=== PATIENT | female | born 1985 | race American Indian/Alaskan Native ===

== ENCOUNTER 2017-07-04 06:57 | Emergency (ER) | payer SELFPAY ==
[2017-07-04 07:17] VITALS: BP 107/70
[2017-07-04] MEDS ORDERED: TORADOL IM ONE (07:52)
[2017-07-04] MEDS ORDERED: TYLENOL PO ONE (07:57)
[2017-07-04] MEDS ORDERED: NACL 0.9% 1000 ML 1,000 ML IV ONE (07:57)
[2017-07-04 08:21] LABS: Basophils % (Auto) 0.6 % (0.0-1.8); Eosinophils % (Auto) 2.8 % (0.0-4.3); Hemoglobin 9.4 gm/dl (10.1-14.3); Mean Corpuscular HGB Conc 31 % (30-34); Mean Corpuscular Volume 80 fl (79-97); Platelet Count 296 K/mm3 (140-440); Red Blood Count 3.76 M/mm3 (3.65-5.03); White Blood Count 4.2 K/mm3 (4.5-11.0)
[2017-07-04 08:26] LABS: Bacteria,Urine 1+ /HPF (Negative); Bilirubin,Urine SM (Negative); Blood,Urine LG (Negative); Ketones,Urine NEG (Negative); Leukocyte Esterase,Urine SM (Negative); Mucus,Urine 2+ /HPF; Nitrite,Urine NEG (Negative)
[2017-07-04 08:30] LABS: Mean Corpuscular Hemoglobin 25 pg (28-32)
[2017-07-04 08:33] LABS: Anion Gap 15 mmol/L; BUN/Creatinine Ratio 9; Blood Urea Nitrogen 6 mg/dL (7-17); Calcium 8.2 mg/dL (8.4-10.2); Carbon Dioxide 26 mmol/L (22-30); Chloride 104.2 mmol/L (98-107); Creatine Kinase 228 units/L (30-135); Glucose 73 mg/dL (65-100); Potassium 4.1 mmol/L (3.6-5.0); Sodium 141 mmol/L (137-145)
[2017-07-04] MEDS ORDERED: TORADOL IV ONE (08:33)
--- NOTE | 2017-07-04 08:33 | Emergency Department Report ---
ED Back Pain/Injury HPI - General Chief Complaint: Back Pain/Injury Stated Complaint: BACK PAIN Time Seen by Provider: 07/04/17 07:47 Source: patient Mode of arrival: Ambulatory Limitations: No Limitations - History of Present Illness Initial Comments: 31-year-old female past medical history none presents with complaint of 3-4 days of body aches. Patient is awake alert and oriented 3 not in acute distress. States that she started a new job and was exerting herself physically. 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 Denies fevers chills nausea vomiting headaches dizziness. Denies dysuria. LMP is now. States she has been taking Tylenol but still feels achy. Achiness worse and bilateral shoulders. States she has been moving around heavy objects. Symptoms improved with rest. Onset/Timin -: days(s) Place: home, work Severity: moderate Severity scale (0 -10): 6 Quality: aching Consistency: intermittent Improves With: none Worsens With: none - Related Data Previous Rx's Medication Instructions Recorded Last Taken Type Carisoprodol [Soma] 350 mg PO TID PRN #15 tablet 11/18/15 Unknown Rx Cyclobenzaprine [Flexeril] 10 mg PO TID PRN #6 tablet 07/04/17 Unknown Rx Naproxen 500 mg PO BID PRN #30 tablet 07/04/17 Unknown Rx Allergies Allergy/AdvReac Type Severity Reaction Status Date / Time tramadol Allergy Itching Verified 07/04/17 07:11 ED Review of Systems ROS: Stated complaint: BACK PAIN Other details as noted in HPI Constitutional: malaise. denies: chills, fever Eyes: denies: eye pain, eye discharge, vision change ENT: denies: ear pain, throat pain Respiratory: denies: cough, shortness of breath, wheezing Cardiovascular: denies: chest pain, palpitations Endocrine: no symptoms reported Gastrointestinal: denies: abdominal pain, nausea, diarrhea Genitourinary: denies: urgency, dysuria, discharge Musculoskeletal: denies: back pain, joint swelling, arthralgia Skin: denies: rash, lesions Neurological: denies: headache, weakness, paresthesias Psychiatric: denies: anxiety, depression Hematological/Lymphatic: denies: easy bleeding, easy bruising ED Past Medical Hx - Past Medical History Previous Medical History?: Yes Hx Asthma: Yes - Surgical History Past Surgical History?: Yes Additional Surgical History: X 3. TUBAL LIGATION - Social History Smoking Status: Current Every Day Smoker Substance Use Type: None - Medications Home Medications: Home Medications Medication Instructions Recorded Confirmed Last Taken Type Carisoprodol [Soma] 350 mg PO TID PRN #15 tablet 11/18/15 Unknown Rx Cyclobenzaprine [Flexeril] 10 mg PO TID PRN #6 tablet 07/04/17 Unknown Rx Naproxen 500 mg PO BID PRN #30 tablet 07/04/17 Unknown Rx ED Physical Exam - General Limitations: No Limitations General appearance: alert, in no apparent distress - Head Head exam: Present: atraumatic, normocephalic - Eye Eye exam: Present: normal appearance, PERRL, EOMI - ENT ENT exam: Present: mucous membranes moist - Neck Neck exam: Present: normal inspection - Respiratory Respiratory exam: Present: normal lung sounds bilaterally. Absent: respiratory distress - Cardiovascular Cardiovascular Exam: Present: regular rate, normal rhythm. Absent: systolic murmur, diastolic murmur, rubs, gallop - GI/Abdominal GI/Abdominal exam: Present: soft, normal bowel sounds - Extremities Exam Extremities exam: Present: normal inspection, full ROM (range of motion bilateral upper extremities shoulders elbows wrists lower extremities bilateral knees hips and feet intact on exam.) - Back Exam Back exam: Present: normal inspection - Neurological Exam Neurological exam: Present: alert, oriented X3, CN II-XII intact, normal gait - Expanded Neurological Exam Expanded Cranial nerves: EOM's Intact: Normal Sensory exam: Upper Extremity Light Touch: Normal, Lower Extremity Light Touch: Normal Motor strength exam: RUE: 5, LUE: 5, RLE: 5, LLE: 5 - Psychiatric Psychiatric exam: Present: normal affect, normal mood - Skin Skin exam: Present: warm, dry, intact, normal color. Absent: rash ED Course Vital Signs 07/04/17 07:11 Temperature 98.1 F Pulse Rate 74 Respiratory 18 Rate Blood Pressure 107/70 O2 Sat by Pulse 100 Oximetry ED Medical Decision Making - Lab Data Result diagrams: 07/04/17 08:01 07/04/17 08:01 - Medical Decision Making A/P: Muscle aches, musculoskeletal pain 1-significant improvement of discomfort with dose of Toradol and rehydration 2-CK minimally elevated, renal function normal. Urinalysis unremarkable 3-naproxen necessary, I advised the patient to remain well-hydrated. 4-all primary care doctor Critical care attestation.: If time is entered above; I have spent that time in minutes in the direct care of this critically ill patient, excluding procedure time. ED Disposition Clinical Impression: Generalized muscle ache Disposition: TO HOME OR SELFCARE Is pt being admited?: No Does the pt Need Aspirin: No Condition: Stable Instructions: Musculoskeletal Pain (ED), Dehydration (ED) Prescriptions: Cyclobenzaprine [Flexeril] 10 mg PO TID PRN #6 tablet PRN Reason: Muscle Spasm Naproxen 500 mg PO BID PRN #30 tablet PRN Reason: Pain Referrals: [facility] [Provider Group] - 3-5 Days [facility] [Outside] - 3-5 Days Forms: Work/School Release Form(ED) Time of Disposition: 09:49
== END 2017-07-04 10:29 | disposition home or self-care (01) ==
LOC: ED 06:57
DX: M54.9 Dorsalgia, unspecified (principal); F17.210 Nicotine dependence, cigarettes, uncomplicated; Z88.6 Allergy status to analgesic agent
CPT/HCPCS: 36415; 80048; 81001; 82550; 85025; 96361; 96374; 99283; J1885; J7030

== ENCOUNTER 2019-02-03 00:59 | Emergency (ER) | payer OTHER ==
--- NOTE | 2019-02-03 01:47 | XRay Report ---
PROCEDURE: XR SHOULDER 2+V LT TECHNIQUE: 3 views of the left shoulder were obtained. HISTORY: Fall with shoulder pain COMPARISONS: None FINDINGS: The glenohumeral and AC joints appear normal. The subacromial space appears normal. There is no evide nce of fracture or soft tissue injury. IMPRESSION: Within normal limits... This document is electronically signed by Giovanny Aguayo MD., Feb 03 2019 01:45:14 AM ET
[2019-02-03] MEDS ORDERED: IBUPROFEN ONE (04:43)
[2019-02-03] MEDS ORDERED: IBUPROFEN PO ONE (04:43)
[2019-02-03] MEDS ORDERED: NORCO 5/325 PO ONE (05:50)
[2019-02-03] MEDS ORDERED: NORCO 5/325 ONE (05:52)
[2019-02-03 06:45] VITALS: BP 109/67
[2019-02-03] MEDS ORDERED: TORADOL IM ONE (07:24)
--- NOTE | 2019-02-03 07:35 | Emergency Department Report ---
HPI - General Chief Complaint: Shoulder Injury Time Seen by Provider: 02/03/19 07:14 - HPI HPI: Miss Snell is a 33-year-old -[place] female who comes to the ER last night and this being seen 8 hours later, she is very angry about this. But she is complaining of left shoulder pain for 2 weeks. She states that she fell down the steps 2 weeks ago and sought no medical attention until now her left upper extremity is neurovascularly intact. She states that she had no associated injury or LOC at the time of the fall. She thought she was okay but [id number] medicines are not helping with the pain in the shoulder and she feels like there is something stuck in her shoulder movement makes the pain worse. Patient is on no home medications Past medical history asthma Past surgical history section 3 Last menstrual cycle patient has an IUD so she is irregular Patient smokes cigarettes and occasional alcohol: Denies drugs no significant family history Review of systems All systems reviewed and negative with the exception of the left arm pain. Physical exam Patient awake alert and oriented with no focal deficit S1 and S2 no murmur or bruit or rub Lungs clear to auscultation Abdomen soft and nontender No CVA tenderness Full range of motion of her left arm, patient reports stiffness. There is no tenderness over the before meals joint. There is no humerus tenderness. There is no point tenderness at the head of the humerus. She's got normal distal pulses and rapid capillary refill. Radial ulnar and medial nerves are intact. Medical decision making Exam per above X-ray reviewed by myself and radiology with no acute fracture, no before meals separation Given that the patient is complaining of pain of the arm without radiographic evidence of bony disruption: The patient has been placed in a sling will be sent home with end-stage and orthopedic referral. She was medicated in the emergency room for pain. She was given hydrocodone and Toradol IM. This provided some relief. A sling was placed on the left arm. ED Past Medical Hx - Past Medical History Previous Medical History?: Yes Hx Asthma: Yes - Surgical History Past Surgical History?: Yes Additional Surgical History: X 3. TUBAL LIGATION - Family History Family history: no significant - Social History Smoking Status: Current Every Day Smoker Substance Use Type: None - Medications Home Medications: Home Medications Medication Instructions Recorded Confirmed Last Taken Type Ibuprofen [Motrin] 800 mg PO Q8HR PRN #20 tablet 02/03/19 Unknown Rx predniSONE [Deltasone] 20 mg PO DAILY #5 tablet 02/03/19 Unknown Rx ED Review of Systems ROS: Stated complaint: LEFT SHOULDER PAIN Other details as noted in HPI Comment: All other systems reviewed and negative Musculoskeletal: as per HPI Physical Exam - Physical Exam Vital Signs: Vital Signs 02/03/19 02/03/19 01:09 06:44 Temperature 98.3 F 98.4 F Pulse Rate 90 70 Respiratory 18 16 Rate Blood Pressure 122/72 Blood Pressure 109/67 [Left] O2 Sat by Pulse 100 100 Oximetry Physical Exam: see see above ED Course Vital Signs 02/03/19 02/03/19 01:09 06:44 Temperature 98.3 F 98.4 F Pulse Rate 90 70 Respiratory 18 16 Rate Blood Pressure 122/72 Blood Pressure 109/67 [Left] O2 Sat by Pulse 100 100 Oximetry ED Medical Decision Making - Radiology Data Radiology results: report reviewed, image reviewed Critical care attestation.: If time is entered above; I have spent that time in minutes in the direct care of this critically ill patient, excluding procedure time. ED Disposition Clinical Impression: Shoulder contusion Disposition: DC-01 TO HOME OR SELFCARE Is pt being admited?: No Does the pt Need Aspirin: No Condition: Stable Instructions: Contusion in Adults (ED) Additional Instructions: sling during the day for comfort. Follow-up with orthopedics as instructed DIET TOLERATED MEDS ORDERED TODAY IN ER FOLLOW INSTRUCTIONS ON THE BOTTLE ACTIVITY TOLERATED RETURN TO THE ER FOR WORSENING SYMPTOMS NOT RELIEVED BY YOUR MEDICATIONS. Referrals: NELLY HELLER MD [Primary Care Provider] - 3-5 Days JASON SOLORIO MD [Staff Physician] - 3-5 Days Time of Disposition: 07:37
== END 2019-02-03 07:56 | disposition home or self-care (01) ==
LOC: ED 00:59
DX: S40.012A Contusion of left shoulder, initial encounter (principal); J45.909 Unspecified asthma, uncomplicated; F17.200 Nicotine dependence, unspecified, uncomplicated; W10.9XXA Fall (on) (from) unspecified stairs and steps, initial encounter; Y93.89 Activity, other specified; Y92.89 Other specified places as the place of occurrence of the external cause; Y99.8 Other external cause status
CPT/HCPCS: 73030; 96372; 99284; J1885

== ENCOUNTER 2019-03-06 20:14 | Inpatient (IN) | payer OTHER ==
--- NOTE | 2019-03-06 20:33 | Event Note ---
ED Screening Note Date of service: 03/06/19 Time: 20:31 ED Screening Note: 33 y/o female comes in for chest pain and feels like someone is sitting on her chest. Complains that her left leg is numb and her left arm numb. This initial assessment/diagnostic orders/clinical plan/treatment(s) is/are subject to change based on patients health status, clinical progression and re- assessment by fellow clinical providers in the ED. Further treatment and workup at subsequent clinical providers discretion. Patient/guardian urged not to elope from the ED as their condition may be serious if not clinically assessed and managed. Initial orders include:
[2019-03-06] MEDS ORDERED: MORPHINE IV ONE (21:01)
[2019-03-06] MEDS ORDERED: ZOFRAN IV ONE (21:01)
[2019-03-06] MEDS ORDERED: PEPCID IV ONE (21:01)
[2019-03-06] MEDS ORDERED: NACL 0.9% 1000 ML 1,000 ML IV ONE (21:01)
--- NOTE | 2019-03-06 21:02 | Emergency Department Report ---
ED General Adult HPI - General Chief complaint: Chest Pain Stated complaint: CHEST PAIN/SOB Time Seen by Provider: 03/06/19 20:54 Source: patient, RN notes reviewed Mode of arrival: Wheelchair Limitations: No Limitations - History of Present Illness Initial comments: This is a 33-year-old female. This patient is not known to this provider previously. The patient states that she is not . Her primary care doctor is Dr. Clotilde Tomlinson. She has a past medical history of asthma The patient presents to the emergency room today with a complaint of chest pain. The chest pain is central. The chest pain is present for 24 hours. It is constant. She states she feels like someone is sitting on her chest. She denies vomiting and diaphoresis. No recent aspirin consumption. No recent cocaine consumption. Chest pain increases with chewing and swallowing food. She denies DVT, pulmonary embolus risk factors. The patient endorses a secondary complaint of initially nontraumatic left-sided numbness. She reports the numbness started 2 hours prior to arrival. This numbness is in her left arm and left leg, and involves her left jaw. It is constant. It does not radiate anywhere. it does not have exacerbating or relieving factors. -: Gradual, hour(s), days(s) Location: chest, left, upper extremity, lower extremity Quality: aching Consistency: other Improves with: other Worsens with: other - Related Data Previous Rx's Medication Instructions Recorded Last Taken Type Ibuprofen [Motrin] 800 mg PO Q8HR PRN #20 tablet 02/03/19 Unknown Rx predniSONE [Deltasone] 20 mg PO DAILY #5 tablet 02/03/19 Unknown Rx Allergies Allergy/AdvReac Type Severity Reaction Status Date / Time tramadol Allergy Itching Verified 07/04/17 07:11 ED Review of Systems ROS: Stated complaint: CHEST PAIN/SOB Other details as noted in HPI Constitutional: denies: fever Eyes: denies: eye discharge ENT: denies: epistaxis Respiratory: denies: cough Cardiovascular: chest pain Gastrointestinal: denies: vomiting Genitourinary: denies: dysuria Musculoskeletal: denies: back pain Skin: denies: lesions Neurological: numbness, paresthesias Psychiatric: anxiety ED Past Medical Hx - Past Medical History Previous Medical History?: Yes Hx Asthma: Yes - Surgical History Past Surgical History?: Yes Additional Surgical History: X 3. TUBAL LIGATION - Social History Smoking Status: Current Every Day Smoker Substance Use Type: None - Medications Home Medications: Home Medications Medication Instructions Recorded Confirmed Last Taken Type Ibuprofen [Motrin] 800 mg PO Q8HR PRN #20 tablet 02/03/19 Unknown Rx predniSONE [Deltasone] 20 mg PO DAILY #5 tablet 02/03/19 Unknown Rx ED Physical Exam - General Limitations: No Limitations General appearance: alert, anxious, in distress - Head Head exam: Present: atraumatic, normocephalic - Eye Eye exam: Present: normal appearance, EOMI. Absent: nystagmus - ENT ENT exam: Present: normal exam, normal orophraynx, mucous membranes moist, normal external ear exam - Neck Neck exam: Present: normal inspection, full ROM. Absent: tenderness, meningismus - Respiratory Respiratory exam: Present: normal lung sounds bilaterally. Absent: respiratory distress - Cardiovascular Cardiovascular Exam: Present: normal rhythm, tachycardia, normal heart sounds. Absent: systolic murmur, diastolic murmur, rubs, gallop - GI/Abdominal GI/Abdominal exam: Present: soft, pulsatile mass. Absent: distended, tenderness, guarding, rebound, rigid - Extremities Exam Extremities exam: Present: normal inspection, full ROM, other (2+ pulses noted in the bilateral upper, lower extremities. Compartments soft. No long bony tenderness. The pelvis is stable.). Absent: pedal edema, joint swelling, calf tenderness - Back Exam Back exam: Present: normal inspection, full ROM. Absent: tenderness, CVA tenderness (R), CVA tenderness (L), paraspinal tenderness, vertebral tenderness - Neurological Exam Neurological exam: Present: alert, oriented X3, other (there is 5 out of 5 strength in the bilateral upper, lower extremities. There is decreased sensation to light touch left arm, left leg.). Absent: CN II-XII intact (there is decreased sensation to light touch in the left side V2, V3 distribution. Otherwise, extraocular movements are intact bilaterally. There is no facial junk, the tongue is midline, hearing is intact bilaterally, shoulder shrug is intact bilaterally, patient phonating in normal sentences.) - Psychiatric Psychiatric exam: Present: anxious - Skin Skin exam: Present: warm, dry, intact, normal color. Absent: rash ED Course Vital Signs 03/06/19 03/06/19 03/06/19 20:31 21:00 22:00 Temperature 97.9 F Pulse Rate 105 H 91 H Respiratory 20 16 15 Rate Blood Pressure 127/89 Blood Pressure 131/85 [Left] O2 Sat by Pulse 100 99 99 Oximetry 03/06/19 23:08 Temperature Pulse Rate 74 Respiratory 15 Rate Blood Pressure Blood Pressure 116/76 [Left] O2 Sat by Pulse 99 Oximetry - Reevaluation(s) Reevaluation #1: 03/06/19 22:11 Differential diagnosis, including but not limited to: GERD, gastritis, hiatal hernia, acute coronary syndrome, esophageal obstruction, esophageal spasm, aortic dissection, pericarditis, myocarditis, pericardial effusion, strokes, transient ischemic attack, radiculopathy, multiple sclerosis Assessment and plan: 33-year-old female with 2 complaints. In terms of the patient's chest pain, she endorses no pulmonary embolism or DVT risk factors, she is low risk by well's criteria, she is low risk by the heart score for major adverse cardiac event, and her tachycardia has resolved. Highly suspect GI pathology given her association with food. However, given that she subsequently endorses concomitant neurologic symptoms, an emergent CT angiogram of the chest abdomen pelvis is obtained to exclude aortic dissection. We clinically doubt aortic dissection based off of normal tension, equal pulses in the upper, lower extremities, and physical exam, however, a pulsatile abdominal mass was noted, and therefore, patient requires emergent imaging. In terms of her neurologic complaints, she has a low NIH score, and multiple competing diagnoses. In addition, she was seen in conjunction with stroke neurology, who elicited a history that the patient fell a few weeks ago, and may be interested in pursuing disability. In my opinion the patient does not appear to be floridly disabled, and there may be a secondary gain component. Nevertheless, an urgent neurologic work up is recommended by our consulting neurology specialist. The patient's symptoms will be treated, and we will reassess after her initial diagnostics have resulted. Of note, thus far, a noncontrast CT scan of the brain was interpreted as negative. X-ray of her chest appears to be unremarkable Reevaluation #2: 03/06/19 22:14 Because the patient required expedient workup to exclude aortic dissection, she is not able to receive an emergent CT angiogram of the head and neck. However, given the history and physical, large vessel occlusion is not suggested or supported by her physical exam findings or history. Therefore, an emergent CT angiogram of the neck does not need to be performed tonight. It may be performed routinely as an inpatient. Reevaluation #3: 03/06/19 22:58 CTA chest negative for acute disease. CT scan of brain negative for acute disease. Hospital physician, , accepts the patient to the medical service. Reevaluation #4: 03/07/19 00:15 CT angiogram abdomen and pelvis is negative for acute disease. ED Medical Decision Making - Lab Data Result diagrams: 03/06/19 20:42 03/06/19 20:42 Vital Signs 03/06/19 03/06/19 20:31 21:00 Temperature 97.9 F Pulse Rate 105 H 91 H Respiratory 20 16 Rate Blood Pressure 127/89 Blood Pressure 131/85 [Left] O2 Sat by Pulse 100 99 Oximetry Lab Results 03/06/19 03/06/19 03/06/19 Range/Units 20:42 20:42 21:09 WBC 5.8 (4.5-11.0) K/mm3 RBC 4.24 (3.65-5.03) M/mm3 Hgb 9.9 L (10.1-14.3) gm/dl Hct 31.1 (30.3-42.9) % MCV 74 L (79-97) fl MCH 23 L (28-32) pg MCHC 32 (30-34) % RDW 19.8 H (13.2-15.2) % Plt Count 332 (140-440) K/mm3 Lymph % (Auto) Pharmacology Teacher [place] % (Auto) Pharmacology Teacher Eos % (Auto) Pharmacology Teacher Baso % (Auto) Pharmacology Teacher Lymph # Pharmacology Teacher [place] # Pharmacology Teacher Eos # Pharmacology Teacher Baso # Pharmacology Teacher Seg Neutrophils % Pharmacology Teacher Seg Neutrophils # Pharmacology Teacher PT (12.2-14.9) Sec. INR (0.87-1.13) APTT (24.2-36.6) Sec. Thrombin Time (15.1-19.6) Sec. Sodium 137 (137-145) mmol/L Potassium 3.3 L (3.6-5.0) mmol/L Chloride 101.8 (98-107) mmol/L Carbon Dioxide 19 L (22-30) mmol/L Anion Gap 20 mmol/L BUN 6 L (7-17) mg/dL Creatinine 0.6 L (0.7-1.2) mg/dL Estimated GFR > 60 ml/min BUN/Creatinine Ratio 10 % Glucose 88 (65-100) mg/dL POC Glucose 90 (70-105) Calcium 9.2 (8.4-10.2) mg/dL Magnesium (1.7-2.3) mg/dL Total Bilirubin 0.20 (0.1-1.2) mg/dL AST 19 (5-40) units/L ALT 9 (7-56) units/L Alkaline Phosphatase 57 (35-129) units/L Total Creatine Kinase (30-135) units/L CK-MB (CK-2) (0.0-4.0) ng/mL CK-MB (CK-2) Rel Index (0-4) Troponin T < 0.010 (0.00-0.029) ng/mL Total Protein 7.9 (6.3-8.2) g/dL Albumin 4.1 (3.9-5) g/dL Albumin/Globulin Ratio 1.1 % TSH (0.270-4.200) mlU/mL 03/06/19 03/06/19 03/06/19 Range/Units 21:20 21:20 21:20 WBC (4.5-11.0) K/mm3 RBC (3.65-5.03) M/mm3 Hgb (10.1-14.3) gm/dl Hct (30.3-42.9) % MCV (79-97) fl MCH (28-32) pg MCHC (30-34) % RDW (13.2-15.2) % Plt Count (140-440) K/mm3 Lymph % (Auto) [place] % (Auto) Eos % (Auto) Baso % (Auto) Lymph # [place] # Eos # Baso # Seg Neutrophils % Seg Neutrophils # PT 13.0 (12.2-14.9) Sec. INR 1.01 (0.87-1.13) APTT 28.5 (24.2-36.6) Sec. Thrombin Time 16.5 (15.1-19.6) Sec. Sodium (137-145) mmol/L Potassium (3.6-5.0) mmol/L Chloride (98-107) mmol/L Carbon Dioxide (22-30) mmol/L Anion Gap mmol/L BUN (7-17) mg/dL Creatinine (0.7-1.2) mg/dL Estimated GFR ml/min BUN/Creatinine Ratio % Glucose (65-100) mg/dL POC Glucose (70-105) Calcium (8.4-10.2) mg/dL Magnesium 1.80 (1.7-2.3) mg/dL Total Bilirubin (0.1-1.2) mg/dL AST (5-40) units/L ALT (7-56) units/L Alkaline Phosphatase (35-129) units/L Total Creatine Kinase 113 115 (30-135) units/L CK-MB (CK-2) 1.1 (0.0-4.0) ng/mL CK-MB (CK-2) Rel Index 0.9 (0-4) Troponin T < 0.010 (0.00-0.029) ng/mL Total Protein (6.3-8.2) g/dL Albumin (3.9-5) g/dL Albumin/Globulin Ratio % TSH (0.270-4.200) mlU/mL 03/06/19 Range/Units 21:20 WBC (4.5-11.0) K/mm3 RBC (3.65-5.03) M/mm3 Hgb (10.1-14.3) gm/dl Hct (30.3-42.9) % MCV (79-97) fl MCH (28-32) pg MCHC (30-34) % RDW (13.2-15.2) % Plt Count (140-440) K/mm3 Lymph % (Auto) [place] % (Auto) Eos % (Auto) Baso % (Auto) Lymph # [place] # Eos # Baso # Seg Neutrophils % Seg Neutrophils # PT (12.2-14.9) Sec. INR (0.87-1.13) APTT (24.2-36.6) Sec. Thrombin Time (15.1-19.6) Sec. Sodium (137-145) mmol/L Potassium (3.6-5.0) mmol/L Chloride (98-107) mmol/L Carbon Dioxide (22-30) mmol/L Anion Gap mmol/L BUN (7-17) mg/dL Creatinine (0.7-1.2) mg/dL Estimated GFR ml/min BUN/Creatinine Ratio % Glucose (65-100) mg/dL POC Glucose (70-105) Calcium (8.4-10.2) mg/dL Magnesium (1.7-2.3) mg/dL Total Bilirubin (0.1-1.2) mg/dL AST (5-40) units/L ALT (7-56) units/L Alkaline Phosphatase (35-129) units/L Total Creatine Kinase (30-135) units/L CK-MB (CK-2) (0.0-4.0) ng/mL CK-MB (CK-2) Rel Index (0-4) Troponin T (0.00-0.029) ng/mL Total Protein (6.3-8.2) g/dL Albumin (3.9-5) g/dL Albumin/Globulin Ratio % TSH 1.790 (0.270-4.200) mlU/mL - EKG Data -: EKG Interpreted by Me EKG shows normal: sinus rhythm Rate: normal - EKG Data 03/06/19 22:14 EKG #1 shows a normal sinus rhythm, 93 bpm, normal axis, motion artifact, QTC 447 ms, I left ventricular voltage, this is an abnormal EKG, this EKG is not consistent with ST elevation myocardial infarction. EKG #2 appears to be grossly unchanged from prior. There is significant motion artifact both EEGs, as the patient is trembling, and is not able to relax. - Radiology Data Radiology results: report reviewed, image reviewed X-ray of the chest appears to be unremarkable. Noncontrast CT scan of the brain is negative. Critical care attestation.: If time is entered above; I have spent that time in minutes in the direct care of this critically ill patient, excluding procedure time. ED Disposition Clinical Impression: Acute chest pain, Numbness on left side, Chest pain Disposition: OP ADMIT IP TO THIS HOSP Is pt being admited?: Yes Does the pt Need Aspirin: Yes Condition: Good - Assessment Assessment Interval: Baseline - Level of Consciousness 1a. Level of Consciousness: alert/keenly responsive - LOC Questions 1b. LOC Questions: answers both correctly - LOC Command 1c. LOC Commands: performs tasks correctly - Best Gaze 2. Best Gaze: normal - Visual 3. Visual: no visual loss - Facial Palsy 4. Facial Palsy: normal symmetrical movement - Motor Arm 5a. Motor Arm Left: no drift 5b. Motor Arm Right: no drift - Motor Leg 6a. Motor Leg Left: no drift 6b. Motor Leg Right: no drift - Limb Ataxia 7. Limb Ataxia: absent - Sensory 8. Sensory: mild/moderate sensory loss - Best Language 9. Best Language: no aphasia - Dysarthria 10. Dysarthria: normal - Extinction and Inattention 11. Extinction/Inattention: no abnormality - Scoring Total Score: 1 Stroke Severity: Minor Stroke
[2019-03-06 21:04] LABS: Hematocrit 31.1 % (30.3-42.9); Hemoglobin 9.9 gm/dl (10.1-14.3); Mean Corpuscular HGB Conc 32 % (30-34); Mean Corpuscular Volume 74 fl (79-97); Platelet Count 332 K/mm3 (140-440); Red Blood Count 4.24 M/mm3 (3.65-5.03); Red Cell Distribution Width 19.8 % (13.2-15.2)
[2019-03-06 21:17] LABS: Alanine Aminotransferase 9 units/L (7-56); Albumin 4.1 g/dL (3.9-5); BUN/Creatinine Ratio 10; Blood Urea Nitrogen 6 mg/dL (7-17); Calcium 9.2 mg/dL (8.4-10.2); Hemolysis Index 2
--- NOTE | 2019-03-06 21:33 | Cat Scan Report ---
PROCEDURE: CT HEAD/BRAIN WO CON TECHNIQUE: Computerized tomography of the head was performed without contrast material. CT DOSE LENGTH PRODUCT: 920.5 mGycm HISTORY: Stroke symptoms COMPARISONS: None . FINDINGS: Skull and scalp: Normal . Paranasal sinuses: Normal . Ventricles and subarachnoid spaces: Normal . Cerebrum: No evidence of hemorrhage, acute infarction or mass . Cerebellum and brainstem: No evidence of hemorrhage, acute infarction or mass . Vasculature: Normal . Other: None . IMPRESSION: No evidence of hemorrhage, acute infarction or mass . This document is electronically signed by Bonita Grullon MD., March 06 2019 09:31:32 PM ET
[2019-03-06 21:50] LABS: INR 1.01 (0.87-1.13)
[2019-03-06 21:51] LABS: Partial Thromboplastin Time 28.5 Sec. (24.2-36.6); Thrombin Time 16.5 Sec. (15.1-19.6)
[2019-03-06 21:57] LABS: Creatine Kinase MB 1.1 ng/mL (0.0-4.0)
[2019-03-06] MEDS ORDERED: K-DUR PO ONE (22:16)
--- NOTE | 2019-03-06 22:35 | XRay Report ---
PROCEDURE: XR CHEST 1V AP TECHNIQUE: Chest radiograph single view. HISTORY: chest pain. COMPARISONS: None . FINDINGS: Heart: Normal. Mediastinum/Vessels: Normal. Lungs/Pleural space: Normal. Bony thorax: No acute osseous abnormality. Life support devices: None. IMPRESSION: No acute cardiopulmonary abnormality. This document is electronically signed by Bonita Grullon MD., March 06 2019 10:32:51 PM ET
--- NOTE | 2019-03-06 22:51 | Cat Scan Report ---
PROCEDURE: CT ANGIO CHEST TECHNIQUE: Computerized tomographic angiography of the chest was performed during the IV injection o f iodinated nonionic contrast including image processing. The image data was postprocessed using 2-d imensional multiplanar reformatted (MPR) and 3-dimensional (MIP and/or volume rendered) techniques. A utomated exposure control, adjustment of mA and/or kV according to patient size, or iterative reconst ruction dose optimization techniques were utilized. HISTORY: cp, cva symptoms, aortic protocol COMPARISONS: None . FINDINGS: Pulmonary out flow tract, right and left main pulmonary arteries and the approximal branches: Clear, no filling defects seen to suggest pulmonary embolus. Pericardium: No evidence of pericardial effusion. Thoracic aorta: No evidence of aneurysmal dilatation or dissection. The origin of the great vessels appear widely patent. Visualized portions of the vertebral arteries and common carotid arteries appea r widely patent. No significant stenosis, dissection or occlusion identified. Coronary arteries: Unremarkable. Mediastinum and hilar regions: Non specific subcentimeter lymph nodes are visualized. No pathologica lly enlarged lymph nodes or masses are identified. Lung Jung: Minimal peripheral emphysematous changes visualized near the apex of both lungs. The caio gs otherwise are clear. No infiltrates masses or effusions are identified. No evidence of pneumothora x. Upper abdomen: No acute or focal abnormality is seen. Other: No acute bone abnormalities are identified. IMPRESSION: No acute abnormalities identified. Aortic arch and origin of the great vessels appear widely patent. This document is electronically signed by Greg Velasquez MD., March 06 2019 10:49:31 PM ET
[2019-03-06] MEDS ORDERED: BABY ASPIRIN PO ONE (23:03)
--- NOTE | 2019-03-06 23:13 | Emergency Department Report ---
ED Neuro Deficit HPI - General Chief Complaint: Chest Pain Stated Complaint: CHEST PAIN/SOB Time Seen by Provider: 03/06/19 20:54 Source: patient, RN/MD, RN notes reviewed Mode of arrival: Wheelchair Limitations: No Limitations - History of Present Illness Initial Comments: [facility] TeleStroke Metrics: LKW: 1800 Door Time: 2013 [facility] Contacted: 2102 [facility] at Bedside: 2108 NIHSS: 2111 Decision on Alteplase: Not to give due to the patient's acute chest pain and low NIH stroke scale score less than 5. Patient was in agreement to be conservative and not to receive IV alteplase. Interventional Candidate: Not a candidate as her symptoms are not consistent with a large vessel proximal occlusion. Chief Complaint: Severe chest pain, neck pain, and left-sided numbness and weakness. HPI: Asked to see this patient in telemedicine consultation. Consultation was performed with assistance of ancillary / medical staff at bedside. Verbal consent to perform the examination with telemedicine was obtained. Patient agreed to proceed with the consultation. 33-year-old right-handed Afro-[place]og[place]ese female who comes to the emergency room for evaluation of worsening chest pain and left-sided numbness and weakness. Patient states that about 2 months ago, she fell down some flights of stairs. She developed neck pain, and has had this on and off over the last 2 months. Then apparently last night, she developed significant chest pain. Then sometime around 6 PM, she developed worsening chest pain and noted left arm and leg numbness. While in the ER, she also was noted to have mild left-sided weakness in addition to her left-sided numbness. Initial clinical concern was for an aortic dissection given her severe chest pain and focal neurological symptoms. Head CT eventually came back negative. CTA of the chest was also grossly negative for overt aortic dissection. I reviewed with the patient about the availability of IV alteplase. I reviewed with her about some of the potential side effects of IV alteplase to include an approximate 6% risk of symptomatic intracranial hemorrhage, internal bleeding, and/or angioedema. Patient at this point had opted for a more conservative management, and had deferred IV alteplase administration. PMH: Asthma SOC: Positive for tobacco abuse. Negative for alcohol abuse or illicit drug use. Patient does not take any control pills. She lives with family. FMH: Positive for stroke. ROS: 13 point review of systems were reviewed with the patient, and are all negative with the exception of the aforementioned in the history of present illness. VS: Temperature is 97.9 F, pulse 105, respiration 20, blood pressure 127/89, oxygen saturation 100% Exam: Patient is in no apparent distress. Patient appears as stated age. No obvious acute respiratory or cardiac distress. Patient is well groomed and well-nourished. 1a- LOC: Keenly responsive - 0 1b- LOC questions: Answers both questions correctly - 0 1c- LOC commands- Performs both tasks correctly- 0 2- Gaze: Normal; no gaze paresis or gaze deviation - 0 3- Visual Jung: normal, no Visual field deficit - 0 4- Facial movements: no facial palsy - 0 5- Upper limb motor left arm drift - 1 6- Lower limb motor left leg drift - 1 7- Limb Coordination: absent ataxia - 0 8- Sensory: left sensory loss - 1 9- Language - No aphasia - 0 10- Speech - No dysarthria -0 11- Neglect / Extinction - none found - 0 NIHSS score: 3 Diagnostic Data: Blood glucose 90, WBC 5.8, hemoglobin 9.9, platelets 332 CT of the head showed no acute intracranial process CTA of the chest was negative for aortic dissection. Medical Data Reviewed: 1.Data?reviewed include clinical labs, radiology, and medical tests; 2.Tests?results discussed w/performing or interpreting physician; 3.Obtaining/reviewing old medical records; 4.Obtaining?case history from another source; 5.Independent?review of image, tracing, or specimen. Medical Decision Making: - Extensive number of diagnosis or management options are considered below. - Extensive amount of complex data reviewed. - High risk of complication and/or morbidity or mortality are associated with differential diagnostic considerations below. - There may be?uncertain?outcome and increased probability of prolonged functional impairment or high probability of severe prolonged functional impairment associated with some of these differential diagnosis. Differential Diagnosis for Stroke: 1.?Cardioembolic?stroke 2. Small vessel disease/lacune 3. Thromboembolic, [id number] mechanism 4.?Hypercoagulable?state-related infarct 5. Transient ischemic attack 6. Thrombotic mechanism, large artery disease Assessment: 1. Chest pain 2. Left-sided numbness and weakness 3. Tobacco abuse 4. History of asthma 5. Neck Pain Recommendations: Patient can be admitted to the hospital for further evaluation of her symptoms. Chest pain work-up per primary team. Reasonable to start the patient on a baby aspirin for now. Can check MRI of the brain with and without contrast to rule out any acute intracranial process. Can check MRA of the head and neck to evaluate her intracranial and extracranial blood vessels given her history of fall 2 months ago and ongoing neck pain issues. Can also check MRI of the cervical spine with and without contrast given her left-sided symptoms and ongoing neck discomfort. Check echocardiogram to gauge her cardiac function. Maintain the patient on telemetry to look for any paroxysmal cardiac arrhythmias. Check lipid panel, hemoglobin A1c, and urine drug screen. Consult PT, OT, and ST. Consult local neurology team to assist with evaluation and management. Continue supportive care. Plan of care was discussed with the patient. Thank you for allowing [facility] to participate in the care of your patient. Please call me, Dr. Hammond, with any questions at [phone]. Case discussed with the ER staff and Dr. Hazel. Critical Care notation: I was called to see this critical patient emergently. I personally evaluated this critical patient for acute stroke evaluation, and determining their eligibility for IV Alteplase and interventional therapies. I have spent approximately 7 minutes with the patient, including time at bedside, time discussing the case with other physicians, reviewing plan of care, and time independently reviewing the records and scans. -: Sudden - Related Data Home Medications: Previous Rx's Medication Instructions Recorded Last Taken Type Ibuprofen [Motrin] 800 mg PO Q8HR PRN #20 tablet 02/03/19 Unknown Rx predniSONE [Deltasone] 20 mg PO DAILY #5 tablet 02/03/19 Unknown Rx Allergies/Adverse Reactions: Allergies Allergy/AdvReac Type Severity Reaction Status Date / Time tramadol Allergy Itching Verified 07/04/17 07:11 ED Review of Systems ROS: Stated complaint: CHEST PAIN/SOB Other details as noted in HPI Constitutional: denies: fever Eyes: denies: eye discharge ENT: denies: epistaxis Respiratory: denies: cough Cardiovascular: chest pain Gastrointestinal: denies: vomiting Genitourinary: denies: dysuria Musculoskeletal: denies: back pain Skin: denies: lesions Neurological: numbness, paresthesias Psychiatric: anxiety ED Past Medical Hx - Past Medical History Previous Medical History?: Yes Hx Asthma: Yes - Surgical History Past Surgical History?: Yes Additional Surgical History: X 3. TUBAL LIGATION - Social History Smoking Status: Current Every Day Smoker Substance Use Type: None - Medications Home Medications: Home Medications Medication Instructions Recorded Confirmed Last Taken Type Ibuprofen [Motrin] 800 mg PO Q8HR PRN #20 tablet 02/03/19 Unknown Rx predniSONE [Deltasone] 20 mg PO DAILY #5 tablet 02/03/19 Unknown Rx ED Neuro Physical Exam - General Limitations: No Limitations General appearance: alert, anxious, in distress Suspected Stroke: Yes - NIHSS Assessment Interval: Baseline 1a. Level of Consciousness: alert/keenly responsive 1b. LOC Questions: answers both correctly 1c. LOC Commands: performs tasks correctly 2. Best Gaze: normal 3. Visual: no visual loss 4. Facial Palsy: normal symmetrical movement 5b. Motor Arm Right: no drift 5a. Motor Arm Left: drift 6a. Motor Leg Left: drift 6b. Motor Leg Right: no drift 7. Limb Ataxia: absent 8. Sensory: mild/moderate sensory loss 9. Best Language: no aphasia 10. Dysarthria: normal 11. Extinction/Inattention: no abnormality Total Score: 3 Stroke Severity: Minor Stroke ED Course Vital Signs 03/06/19 03/06/19 03/06/19 20:31 21:00 22:00 Temperature 97.9 F Pulse Rate 105 H 91 H Respiratory 20 16 15 Rate Blood Pressure 127/89 Blood Pressure 131/85 [Left] O2 Sat by Pulse 100 99 99 Oximetry 03/06/19 23:08 Temperature Pulse Rate 74 Respiratory 15 Rate Blood Pressure Blood Pressure 116/76 [Left] O2 Sat by Pulse 99 Oximetry - Lab Data Result diagrams: 03/06/19 20:42 03/06/19 20:42 Lab Results 03/06/19 03/06/19 03/06/19 Range/Units 20:42 20:42 21:09 WBC 5.8 (4.5-11.0) K/mm3 RBC 4.24 (3.65-5.03) M/mm3 Hgb 9.9 L (10.1-14.3) gm/dl Hct 31.1 (30.3-42.9) % MCV 74 L (79-97) fl MCH 23 L (28-32) pg MCHC 32 (30-34) % RDW 19.8 H (13.2-15.2) % Plt Count 332 (140-440) K/mm3 Lymph % (Auto) Zoology Teacher Yancey % (Auto) Zoology Teacher Eos % (Auto) Zoology Teacher Baso % (Auto) Zoology Teacher Lymph # Zoology Teacher Yancey # Zoology Teacher Eos # Zoology Teacher Baso # Zoology Teacher Seg Neutrophils % Zoology Teacher Seg Neutrophils # Zoology Teacher PT (12.2-14.9) Sec. INR (0.87-1.13) APTT (24.2-36.6) Sec. Thrombin Time (15.1-19.6) Sec. Sodium 137 (137-145) mmol/L Potassium 3.3 L (3.6-5.0) mmol/L Chloride 101.8 (98-107) mmol/L Carbon Dioxide 19 L (22-30) mmol/L Anion Gap 20 mmol/L BUN 6 L (7-17) mg/dL Creatinine 0.6 L (0.7-1.2) mg/dL Estimated GFR > 60 ml/min BUN/Creatinine Ratio 10 % Glucose 88 (65-100) mg/dL POC Glucose 90 (70-105) Calcium 9.2 (8.4-10.2) mg/dL Magnesium (1.7-2.3) mg/dL Total Bilirubin 0.20 (0.1-1.2) mg/dL AST 19 (5-40) units/L ALT 9 (7-56) units/L Alkaline Phosphatase 57 (35-129) units/L Total Creatine Kinase (30-135) units/L CK-MB (CK-2) (0.0-4.0) ng/mL CK-MB (CK-2) Rel Index (0-4) Troponin T < 0.010 (0.00-0.029) ng/mL Total Protein 7.9 (6.3-8.2) g/dL Albumin 4.1 (3.9-5) g/dL Albumin/Globulin Ratio 1.1 % TSH (0.270-4.200) mlU/mL 03/06/19 03/06/19 03/06/19 Range/Units 21:20 21:20 21:20 WBC (4.5-11.0) K/mm3 RBC (3.65-5.03) M/mm3 Hgb (10.1-14.3) gm/dl Hct (30.3-42.9) % MCV (79-97) fl MCH (28-32) pg MCHC (30-34) % RDW (13.2-15.2) % Plt Count (140-440) K/mm3 Lymph % (Auto) Yancey % (Auto) Eos % (Auto) Baso % (Auto) Lymph # Yancey # Eos # Baso # Seg Neutrophils % Seg Neutrophils # PT 13.0 (12.2-14.9) Sec. INR 1.01 (0.87-1.13) APTT 28.5 (24.2-36.6) Sec. Thrombin Time 16.5 (15.1-19.6) Sec. Sodium (137-145) mmol/L Potassium (3.6-5.0) mmol/L Chloride (98-107) mmol/L Carbon Dioxide (22-30) mmol/L Anion Gap mmol/L BUN (7-17) mg/dL Creatinine (0.7-1.2) mg/dL Estimated GFR ml/min BUN/Creatinine Ratio % Glucose (65-100) mg/dL POC Glucose (70-105) Calcium (8.4-10.2) mg/dL Magnesium 1.80 (1.7-2.3) mg/dL Total Bilirubin (0.1-1.2) mg/dL AST (5-40) units/L ALT (7-56) units/L Alkaline Phosphatase (35-129) units/L Total Creatine Kinase 113 115 (30-135) units/L CK-MB (CK-2) 1.1 (0.0-4.0) ng/mL CK-MB (CK-2) Rel Index 0.9 (0-4) Troponin T < 0.010 (0.00-0.029) ng/mL Total Protein (6.3-8.2) g/dL Albumin (3.9-5) g/dL Albumin/Globulin Ratio % TSH (0.270-4.200) mlU/mL 03/06/19 Range/Units 21:20 WBC (4.5-11.0) K/mm3 RBC (3.65-5.03) M/mm3 Hgb (10.1-14.3) gm/dl Hct (30.3-42.9) % MCV (79-97) fl MCH (28-32) pg MCHC (30-34) % RDW (13.2-15.2) % Plt Count (140-440) K/mm3 Lymph % (Auto) Yancey % (Auto) Eos % (Auto) Baso % (Auto) Lymph # Yancey # Eos # Baso # Seg Neutrophils % Seg Neutrophils # PT (12.2-14.9) Sec. INR (0.87-1.13) APTT (24.2-36.6) Sec. Thrombin Time (15.1-19.6) Sec. Sodium (137-145) mmol/L Potassium (3.6-5.0) mmol/L Chloride (98-107) mmol/L Carbon Dioxide (22-30) mmol/L Anion Gap mmol/L BUN (7-17) mg/dL Creatinine (0.7-1.2) mg/dL Estimated GFR ml/min BUN/Creatinine Ratio % Glucose (65-100) mg/dL POC Glucose (70-105) Calcium (8.4-10.2) mg/dL Magnesium (1.7-2.3) mg/dL Total Bilirubin (0.1-1.2) mg/dL AST (5-40) units/L ALT (7-56) units/L Alkaline Phosphatase (35-129) units/L Total Creatine Kinase (30-135) units/L CK-MB (CK-2) (0.0-4.0) ng/mL CK-MB (CK-2) Rel Index (0-4) Troponin T (0.00-0.029) ng/mL Total Protein (6.3-8.2) g/dL Albumin (3.9-5) g/dL Albumin/Globulin Ratio % TSH 1.790 (0.270-4.200) mlU/mL Critical care attestation.: If time is entered above; I have spent that time in minutes in the direct care of this critically ill patient, excluding procedure time. ED Disposition Clinical Impression: Chest pain, Acute chest pain, Numbness on left side Disposition: OP ADMIT IP TO THIS HOSP Is pt being admited?: Yes Does the pt Need Aspirin: Yes Condition: Good Instructions: Chest Pain (ED) Referrals: NELLY HELLER MD [Primary Care Provider] - 3-5 Days
--- NOTE | 2019-03-06 23:37 | Cat Scan Report ---
PROCEDURE: CT ANGIO ABDOMEN PELVIS TECHNIQUE: Computerized axial tomographic angiography of the abdomen and pelvis was performed during the IV injection of iodinated nonionic contrast. The image data was postprocessed using 2-dimensiona l multiplanar reformatted (MPR) and 3-dimensional (MIP and/or volume rendered) techniques. HISTORY: cp, cva symptoms, aortic protocol pulsatile abd ma COMPARISONS: None . FINDINGS: Lower Lung thibodeaux: No focal abnormalities seen. Upper Abdomen: The liver, gallbladder, adrenal glands, the pancreas and spleen are unremarkable. The re is nonspecific visualization of the pancreatic duct. Kidneys, Ureters and Urinary bladder: No abnormalities are seen. Retroperitoneum: The abdominal aorta appears normal. There is no aneurysm or dissection. No evidence of occlusion or stenosis. Single renal artery visualized on the left, 2 renal arteries are visualized on the right which appear widely patent. The celiac trunk and SMA are widely patent. Inferior mesent amari artery also appears widely patent. Iliac arteries are widely patent. Nonspecific subcentimeter lymph nodes are seen in the retroperitoneum. No pathologically enlarged ly mph nodes are identified. Bowel: No focal abnormalities are identified. No evidence of bowel obstruction ascites or free intra peritoneal gas. Reproductive organs: Uterus and adnexa show no focal abnormality. Tubal ligation clips are visualize d bilaterally. Other: No acute bone abnormalities are identified. IMPRESSION: No focal abnormalities of the abdomen or branch vessels visualized. There is no evidence of occlusion , significant stenosis or dissection. No aneurysm is visualized. Tubal ligation clips visualized bilaterally. This document is electronically signed by Greg Velasquez MD., March 06 2019 11:34:59 PM [facility]
[2019-03-06] MEDS ORDERED: BABY ASPIRIN ONE (23:47)
[2019-03-07] MEDS ORDERED: NITROSTAT SL PRN (00:09)
[2019-03-07] MEDS ORDERED: ZOFRAN IV PRN (00:11)
[2019-03-07] MEDS ORDERED: BENADRYL IV PRN (00:15)
[2019-03-07] MEDS: MORPHINE IV PRN ×4 (00:48→21:09)
[2019-03-07] MEDS: NITRO-BID 2% TP SCH ×5 (00:49→17:31)
[2019-03-07] MEDS ORDERED: SOLU-Medrol IV ONE (01:00)
[2019-03-07] MEDS ORDERED: SOLU-Medrol IV SCH (06:00)
[2019-03-07 06:13] LABS: Amphetamine Screen,Urine PRESUMPTIVE NEGATIVE; Benzodiazepines Screen,Urine PRESUMPTIVE NEGATIVE; Cocaine Screen,Urine PRESUMPTIVE NEGATIVE; Methadone Screen,Urine PRESUMPTIVE NEGATIVE; Opiate Screen,Urine PRESUMPTIVE NEGATIVE
[2019-03-07 06:28] LABS: Cannabinoid Screen,Urine PRESUMPTIVE POSITIVE
--- NOTE | 2019-03-07 06:46 | History and Physical Report ---
CHIEF COMPLAINT: Chest pain. Other complaint includes numbness of the left side of the face, left upper limb and left lower limb. HISTORY OF PRESENTING ILLNESS: The patient is a 33-year-old female who presented to the Emergency Room complaining about pressure-like chest pain located in the precordial area. Chest pain has been going on for about 24 hours and remained constant. The patient described the pain as if someone is sitting on her chest. There was no history of nausea and vomiting, no history of diaphoresis, but there is history of associated shortness of breath. The patient also complained of numbness on the left side of the face, left upper limb and left lower limb that started sometime yesterday and said that the numbness started about 2 hours prior to presentation. There was no history of speech impairment and no history of dizziness; however, the patient said there is associated weakness on the left upper and lower limbs with the numbness at the same time. The patient denied history of fever or chills and presented for evaluation. PAST MEDICAL HISTORY: Pertinent for asthma. PAST SURGICAL HISTORY: Pertinent for and tubal ligation. FAMILY HISTORY: Reviewed and noncontributory. SOCIAL HISTORY: The patient smokes cigarettes, does not drink alcohol and does not use illicit drug. MEDICATIONS: The patient is on prednisone 20 mg by mouth daily, ibuprofen 800 mg by mouth every 8 hours as needed for pain. ALLERGIES: The patient is allergic to TRAMADOL. REVIEW OF SYSTEMS: CONSTITUTIONAL: There is no fever, no chills, no diaphoresis. HEENT: There is no headache or sore throat. CARDIOVASCULAR SYSTEM: Chest pain is present. No orthopnea. RESPIRATORY SYSTEM: Shortness of breath is present. No cough. GASTROINTESTINAL SYSTEM: There is no nausea, no vomiting, no abdominal pain, diarrhea or constipation. NEUROLOGICAL SYSTEM: Numbness on the left side of the face, left upper and lower limbs noted. Weakness on the left upper and lower limbs noted. No change in mental status. No dizziness. MUSCULOSKELETAL SYSTEM: There is no joint pain or swelling. DERMATOLOGICAL SYSTEM: There is history of skin rash with itching in the neck area. GENITOURINARY SYSTEM: There is no dysuria, hematuria or flank pain. Rest of system review is normal. PHYSICAL EXAMINATION: GENERAL: At the time of exam, the patient was found to be alert, oriented x 3 and in mild distress due to chest pain. VITAL SIGNS: Show normal temperature with pulse of 77, respiration of 20, blood pressure of 106/66 with normal O2 sat on room air. HEENT: Shows pupils are equal, round and reactive to light and accommodating. Extraocular muscles are intact. NECK: Supple with no JVD or carotid bruit. CARDIOVASCULAR SYSTEM: Showed first and second heart sounds with no gallops or murmurs. RESPIRATORY SYSTEM: Showed good air entry on both sides of the lungs with no abnormal breath sounds. GASTROINTESTINAL SYSTEM: Showed abdomen to be full, soft, nontender with no organomegaly or rigidity. NEUROLOGICAL: Shows no focal deficit. MUSCULOSKELETAL SYSTEM: Showed no joint swelling or tenderness. DERMATOLOGICAL SYSTEM: Showed maculoparpular skin rash in the neck area. GENITOURINARY SYSTEM: Showing no costovertebral angle tenderness. PERTINENT LABORATORY AND IMAGING STUDIES: The patient had chest x-ray done that shows no acute cardiopulmonary lesion. The patient also has CT angiogram of the abdomen and pelvis done and it shows no focal abnormality of the abdomen or branch vessels and there is also no evidence of occlusion, significant stenosis or dissection noted. No aneurysm was found. Tubal ligation clips were visualized. The patient also had CT angiogram of the chest done and it shows no acute abnormalities identified. The aortic arch and origin of the great vessels appear widely patent. The patient had CT on the head without contrast done and this shows no evidence of hemorrhage, acute infarct or mass. LABORATORY RESULTS: The patient has CBC done with normal white count, low hemoglobin of 9.9 and low hematocrit of 31.1 with low MCV of 74. The patient's coagulation studies were unremarkable. The patient's chemistry showed low potassium level of 3.3 and rest of chemistry was unremarkable. DIAGNOSES: 1. Chest pain. 2. Numbness of the left side of the body. 3. Acute Allergic reaction to unknown allergen. 4. Hypokalemia. PLAN OF CARE: 1. The patient will be placed on observation on telemetry. 2. The patient will have cardiac enzyme involving troponin, CPK and CK-MB checked every 6 hours for 2 more levels. 3. The patient will have MRI of the brain without contrast done this morning on 03/07/2019 and we will also have bilateral carotid Doppler done because of the numbness on the left side of the body. 4. The patient will be n.p.o. for Lexiscan stress test done this morning. 5. The patient will be on aspirin 325 mg by mouth daily and will be on IV Solu-Medrol 125 mg initially as a stat dose followed by IV Solu-Medrol 60 mg every 8 hours. 6. The patient will be on IV morphine 2 mg every 3 hours as needed for chest pain and will be on IV Zofran 4 mg every 8 hours as needed for nausea and vomiting. 7. The patient will have basic metabolic panel checked this morning to monitor the potassium level. 8. The patient will be on oxygen by nasal cannula 2 liters per minute. 9. The patient will be on Tylenol 650 mg by mouth every 4 hours for fever and headache and aspirin 325 mg by mouth daily. 10. The patient will be on nitro paste 0.5 inch on anterior chest wall q.i.d. as well as Nitrostat 0.4 mg every 5 minutes as needed for breakthrough chest pain. 11. The patient will remain n.p.o. for Lexiscan stress test this morning and will be on IV Benadryl 25 mg every 6 hours as needed for itching for acute allergic reaction. JOB# [id number] [facility]/KASSIE MTDD
[2019-03-07 08:59] LABS: Creatine Kinase MB 1.5 ng/mL (0.0-4.0)
[2019-03-07 09:01] LABS: BUN/Creatinine Ratio 8; Blood Urea Nitrogen 4 mg/dL (7-17); Calcium 8.6 mg/dL (8.4-10.2); Hemolysis Index 3
[2019-03-07] MEDS: ASPIRIN PO SCH (09:01)
--- NOTE | 2019-03-07 12:57 | Progress Note ---
Assessment and Plan Possible complex migraine - CT/CTA head normal - MRI brain pending, neurology following Atypical chest pain, likely GERD - stress test ordered for tomorrow h/o asthma, not in exacerbation - inhalers as needed DVt Px, lovenox Subjective Date of service: 03/07/19 Interval history: Patient seen and examined Denies chest pain or SOB Still has some numbness on the left side Also has mild headache Objective - Constitutional Vitals: Vital Signs - 12hr 03/07/19 03/07/19 03/07/19 01:33 03:33 05:26 Temperature 98.5 F Pulse Rate 70 75 Respiratory 16 Rate Respiratory 20 Rate [Chest] Blood Pressure 99/46 91/53 O2 Sat by Pulse 99 Oximetry 03/07/19 03/07/19 03/07/19 07:55 09:01 11:20 Temperature 98.5 F 98.6 F Pulse Rate 71 82 84 Respiratory 20 18 Rate Respiratory Rate [Chest] Blood Pressure 97/58 107/65 O2 Sat by Pulse 100 100 Oximetry General appearance: Present: no acute distress, well-nourished - EENT Eyes: PERRL, EOM intact ENT: hearing intact, clear oral mucosa Ears: bilateral: normal - Neck Neck: supple, normal ROM - Respiratory Respiratory effort: normal Respiratory: bilateral: CTA - Cardiovascular Rhythm: regular Heart Sounds: Present: S1 & S2. Absent: gallop, rub Extremities: pulses intact, No edema, normal color, Full ROM - Gastrointestinal General gastrointestinal: Present: soft, non-tender, non-distended, normal bowel sounds - Integumentary Integumentary: clear, warm, dry - Musculoskeletal Musculoskeletal: 1, strength equal bilaterally - Neurologic Neurologic: moves all extremities - Psychiatric Psychiatric: memory intact, appropriate mood/affect, intact judgment & insight - Labs CBC & Chem 7: 03/06/19 20:42 03/07/19 07:07 Labs: Abnormal lab results 03/06/19 03/06/19 03/07/19 Range/Units 20:42 20:42 07:07 Hgb 9.9 L (10.1-14.3) gm/dl MCV 74 L (79-97) fl MCH 23 L (28-32) pg RDW 19.8 H (13.2-15.2) % Potassium 3.3 L (3.6-5.0) mmol/L Carbon Dioxide 19 L 19 L (22-30) mmol/L BUN 6 L 4 L (7-17) mg/dL Creatinine 0.6 L 0.5 L (0.7-1.2) mg/dL Glucose 160 H (65-100) mg/dL POC Glucose (70-105) Total Creatine Kinase 137 H (30-135) units/L 03/07/19 03/07/19 Range/Units 07:22 11:22 Hgb (10.1-14.3) gm/dl MCV (79-97) fl MCH (28-32) pg RDW (13.2-15.2) % Potassium (3.6-5.0) mmol/L Carbon Dioxide (22-30) mmol/L BUN (7-17) mg/dL Creatinine (0.7-1.2) mg/dL Glucose (65-100) mg/dL POC Glucose 163 H 217 H (70-105) Total Creatine Kinase (30-135) units/L
[2019-03-07 13:09] LABS: Creatine Kinase MB 1.5 ng/mL (0.0-4.0)
--- NOTE | 2019-03-07 13:41 | Vascular Lab Report ---
PROCEDURE: VL CAROTID DUPLEX BILAT TECHNIQUE: Carotid duplex Doppler ultrasound. Grayscale, color flow and spectral waveform images wer e obtained. HISTORY: LEFT SIDED NUMBNESS COMPARISON: None FINDINGS: There is only minimal plaque evident. There is no abnormal elevation of flow velocity involving inter nal carotid artery. The ICAs/CCA velocity ratios are 1.0 on the right and 0.9 on the left. There are no findings to indicate a hemodynamically significant stenosis. Specifically, findings correspond to stenoses of less than 50%. Vertebral artery flow is antegrade bilaterally. IMPRESSION: No evidence of a hemodynamically significant stenosis. This document is electronically signed by Bessy Lopez MD., March 07 2019 01:40:07 PM ET
[2019-03-07] MEDS: TYLENOL PO PRN (17:31)
--- NOTE | 2019-03-07 18:23 | Progress Note ---
Subjective Date of service: 03/07/19 Interval history: I have dictated a full note on this patient as past off the assessment suspect prolonged migraine as cause of problem but await the MRI of the brain exam is unremarkable Thanks for consult Objective - Vital Sign Vital Signs - 12hr 03/07/19 03/07/19 03/07/19 07:55 08:00 09:01 Temperature 98.5 F Pulse Rate 71 70 82 Pulse Rate [ Apical] Respiratory 20 Rate Blood Pressure 97/58 O2 Sat by Pulse 100 Oximetry 03/07/19 03/07/19 03/07/19 11:20 13:00 14:55 Temperature 98.6 F Pulse Rate 84 Pulse Rate [ 90 Apical] Respiratory 18 Rate Blood Pressure 107/65 O2 Sat by Pulse 100 100 Oximetry 03/07/19 03/07/19 03/07/19 15:07 17:26 17:31 Temperature 98.7 F Pulse Rate 90 78 81 Pulse Rate [ Apical] Respiratory 16 16 Rate Blood Pressure 107/63 O2 Sat by Pulse 100 Oximetry - Laboratory Findings CBC and BMP: 03/06/19 20:42 03/07/19 07:07 Abnormal Lab Findings: Abnormal Labs 03/06/19 03/06/19 03/07/19 20:42 20:42 07:07 Hgb 9.9 L MCV 74 L MCH 23 L RDW 19.8 H Potassium 3.3 L Carbon Dioxide 19 L 19 L BUN 6 L 4 L Creatinine 0.6 L 0.5 L Glucose 160 H POC Glucose Total Creatine Kinase 137 H 03/07/19 03/07/19 03/07/19 07:22 11:22 12:23 Hgb MCV MCH RDW Potassium Carbon Dioxide BUN Creatinine Glucose POC Glucose 163 H 217 H Total Creatine Kinase 149 H
[2019-03-08] MEDS: MORPHINE IV PRN ×2 (05:24→13:56)
[2019-03-08] MEDS: NITRO-BID 2% TP SCH ×3 (07:00→14:02)
[2019-03-08] MEDS ORDERED: LEXISCAN IV ONE ×2 (07:04→07:15)
[2019-03-08] MEDS: ASPIRIN PO SCH (09:42)
[2019-03-08] MEDS ORDERED: TYLENOL ONE (11:46)
[2019-03-08] MEDS: TYLENOL PO PRN (11:46)
--- NOTE | 2019-03-08 13:21 | Discharge Summary ---
Providers - Providers Date of Admission: 03/08/19 09:13 Date of discharge: 03/08/19 Attending physician: ROSEMARIE CHAKRABORTY 03/06/19 Consult to Physician [CONS] Stat Comment: Consulting Provider: JENNIFER FERNANDEZ Physician Instructions: Reason For Exam: suspected stroke 03/07/19 17:43 Consult to Physician [CONS] Routine Comment: Consulting Provider: VIPUL MÉNDEZ Physician Instructions: Reason For Exam: r/o stroke 03/08/19 09:10 Occupational Therapy Evaluate and Treat [CONS] Routine Comment: Reason For Exam: stroke Physical Therapy Evaluation and Treat [CONS] Routine Comment: Reason For Exam: stroke Primary care physician: ADDISON DEL REAL Hospitalization Condition: Good Pertinent studies: CXR CTA chest CT head Carotid doppler Brain MRI stress test Abd/pelvis CTA Hospital course: This is a 33-year-old female with past medical history of asthma presented to the emergency room today with a complaint of chest pain and left-sided numbness with headache. She reported that numbness started 2 hours prior to arrival and includes her left arm and left leg, and her left jaw. She was admitted to hospital with stroke workup and further management. Discharge diagnosis: Leftsided numbness - Initially suspected CVA vs TIA - Symptoms were associated with headache - CT/CTA head normal - MRI brain normal, neurology was consulted and concluded that symptom related to complex migraine - will do outpt followup with neurology for further Mx, discharged with fioricet Atypical chest pain, likely GERD - s/p stress test - normal h/o asthma, not in exacerbation - inhalers as needed DVt Px, lovenox Disposition: - TO HOME OR SELFCARE Time spent for discharge: 34 minutes Core Measure Documentation - Palliative Care Palliative Care/ Comfort Measures: Not Applicable - Core Measures Any of the following diagnoses?: none Exam - Constitutional Vitals: Temp Pulse Resp BP Pulse Ox 98.2 F 65 16 131/80 100 03/08/19 07:39 03/08/19 08:00 03/08/19 12:46 03/08/19 11:47 03/08/19 08:20 General appearance: Present: no acute distress, well-nourished - EENT Eyes: Present: PERRL ENT: hearing intact, clear oral mucosa - Neck Neck: Present: supple, normal ROM - Respiratory Respiratory effort: normal Respiratory: bilateral: CTA - Cardiovascular Heart Sounds: Present: S1 & S2. Absent: rub, click - Extremities Extremities: pulses symmetrical, No edema Peripheral Pulses: within normal limits - Abdominal General gastrointestinal: Present: soft, non-tender, non-distended, normal bowel sounds - Integumentary Integumentary: Present: clear, warm, dry - Musculoskeletal Musculoskeletal: gait normal, strength equal bilaterally - Psychiatric Psychiatric: appropriate mood/affect, intact judgment & insight - Neurologic Neurologic: CNII-XII intact, moves all extremities Plan Activity: advance as tolerated Weight Bearing Status: Weight Bear as Tolerated Diet: low fat, low salt Follow up with: NELLY HELLER MD [Staff Physician] - 3-5 Days VIPUL MÉNDEZ MD [Staff Physician] - 7 Days Forms: Work/School Release Form Prescriptions: Butalb/Acetamin/Caff 50-325-40 [Fioricet 50-325-40] 1 tab PO Q8HR PRN #10 tablet PRN Reason: Headache
[2019-03-08 14:06] VITALS: BP 115/77
--- NOTE | 2019-03-08 14:14 | Consultation ---
IDENTIFICATION: A 33-year-old black female. HISTORY OF PRESENT ILLNESS: This patient is admitted to [facility] via the Emergency Room at [facility], [place]. She was initially admitted after an episode of left-sided weakness, dizziness and had presented with chest pain and felt as if someone was sitting on her chest. Initial assessment was possibility of AK versus asthma. She had a prior workup done at [facility] by her history, but she had also had 3 months of steady migraine headaches daily, severe, unrelenting, without any improvement over the last 3 months. She had been taking medication, but did not subsequently improve. When she was seen in the Emergency Room, she was complaining of left-sided weakness. Apparently, she was working at [employer], became acutely ill there and was feeling very peculiar. Apparently, one of the customers called EMS and she was brought into the hospital here where she still complains of severe headaches. I have reviewed her CT scan of the head. Outside of the fact it has a very marked conformational abnormality due to head positioning, it seems quite unremarkable. There is no evidence of any bleed or infarction. MRI scan is pending at present time. I have reviewed over her laboratory and her hematocrit is 31.1, white blood count 5800. The patient's potassium is 3.3, creatinine is 0.6, BUN 6, glucose is 163 and 160 on 2 separate occasions, CPK is slightly elevated at 137. The patient does have a positive marijuana screen. ALLERGIES: THE PATIENT HAS ALLERGIES TO TRAMADOL. PHYSICAL EXAMINATION: VITAL SIGNS: At this point, she has a blood pressure of 107/63, respirations are 16, O2 sat is 100%, temperature is 98.7, pulse rate is 78, respirations 18. NEUROLOGIC: Cranial nerves are intact. Speech clear. Affect appropriate. As I came to see the patient, she was talking on the cell phone, had no difficulty operating the cell phone, has full functional use of the left side at present time. Face is symmetrical to motor and sensory testing. EXTREMITIES: Examination of the extremities is unremarkable. Motor and sensory examination does not reveal any abnormalities. IMPRESSION: This patient has evidence of a prolonged migraine headache. Her CPK is slightly high, her hematocrit is slightly low, she also had a low potassium at 3.3. I think all of these might combine to produce the dizziness and a feeling of disequilibrium she was having. I would get an MRI scan of the brain to further assess the patient, this is pending. The patient interestingly was told she had some problem in taking Naprosyn, which is the preferred treatment to reduce headache of the migraine type and SHE ALSO HAS ALLERGIES TO TRAMADOL, so this limits the medicines that we could be using. JOB# [id number] ARJUN/KASSIE
--- NOTE | 2019-03-08 14:38 | Magnetic Resonance Report ---
MRI BRAIN 03/08/2019 INDICATION / CLINICAL INFORMATION: LEFT SIDE NUMBNESS. TECHNIQUE: Multiplanar, multisequence MR images of the brain were obtained. COMPARISON: None available. FINDINGS: BRAIN / INTRACRANIAL CONTENTS: Unenhanced MR images of the brain demonstrate no evidence of acute int racranial abnormality. Ventricles and sulci are normal in size and shape. There is no evidence of ischemic injury, demyelination, hemorrhage, or mass. There are no abnormal extra-axial fluid collections. EXTRACRANIAL: Unremarkable CRANIOCERVICAL JUNCTION: No significant abnormality. VASCULAR FLOW-VOIDS: No significant abnormality. IMPRESSION: Negative unenhanced MRI of the brain. Signer Name: James Tapia MD Signed: 03/08/2019 2:34 PM Workstation Name: [id number]
[2019-03-08] MEDS ORDERED: FIORICET PO PRN (14:51)
--- NOTE | 2019-03-09 02:39 | Treadmill Report ---
NUCLEAR CARDIAC IMAGING REPORT INDICATION FOR PROCEDURE: Chest pain. Informed consent was obtained. Vasodilator stress was achieved with the intravenous administration of 0.4 mg of Lexiscan per protocol. Rest and stress nuclear cardiac imaging were performed following the intravenous administration of technetium-99m Myoview per protocol. Images were acquired in a 180-degree arc from 45 degrees OLIVERA to 45 degrees LPO. After data acquisition and reconstruction, the images were processed and reoriented into the vertical long, horizontal long and horizontal short axis slices. A polar color map of the horizontal short axis slices was generated and reviewed. The rotating planar images reviewed in cinematic format on the computer console. Gated SPECT imaging demonstrates a post-stress left ventricular ejection fraction of 67% with normal wall motion. Myocardial perfusion imaging demonstrates no significant cavity change between stress and rest. No significant stress induced perfusion defects are seen. Nuclear cardiac imaging demonstrates grossly normal post-stress left ventricular systolic function with no significant evidence for myocardial ischemia or necrosis. JOB# [id number] MALIK/KASSIE
== END 2019-03-08 17:25 | disposition home or self-care (01) | DRG 103 ==
LOC: ED 20:14 → 4A 23:02 → OBSVTOIN 03-08 09:13
PROVIDERS: ADMIT Internal Medicine; ATTEND Internal Medicine
DX: G43.909 Migraine, unspecified, not intractable, without status migrainosus (principal); K21.9 Gastro-esophageal reflux disease without esophagitis; E87.6 Hypokalemia; J45.909 Unspecified asthma, uncomplicated; F17.210 Nicotine dependence, cigarettes, uncomplicated; Z98.51 Tubal ligation status; Z88.6 Allergy status to analgesic agent; Z79.899 Other long term (current) drug therapy; Z79.51 Long term (current) use of inhaled steroids
CPT/HCPCS: 36415; 70450; 70551; 71045; 71275; 74174; 78452; 80048; 80053; 80307; 82550; 82553; 82962; 83735; 84443; 84484; 85025; 85610; 85670; 85730; 93005; 93010; 93017; 93880; 96361; 96374; 96375; G0378; A9270-GY; A9502; J2270; J2405; J2785; J2920; J2930; J7030; Q9967

== ENCOUNTER 2019-05-04 07:12 | Emergency (ER) | payer OTHER ==
[2019-05-04 07:26] VITALS: BP 111/66
[2019-05-04] MEDS ORDERED: NORCO 5/325 PO ONE (08:15)
--- NOTE | 2019-05-04 08:19 | Emergency Department Report ---
ED ENT HPI - General Chief complaint: Dental/Oral Stated complaint: TOOTHACHE EYE AND HEADACHE Time Seen by Provider: 05/04/19 08:08 Source: patient Mode of arrival: Ambulatory Limitations: No Limitations - History of Present Illness Initial comments: dental pain, 2 days broke tooth in past, doesnt see dentist pain radiates to head MD complaint: tooth pain -: days(s) (2) Location: tooth # (11) Severity: moderate Severity scale (0 -10): 7 Quality: stabbing Consistency: constant Improves with: none Worsens with: none Context- Dental: history of dental caries Associated Symptoms: denies: fever - Related Data Previous Rx's Medication Instructions Recorded Last Taken Type Ibuprofen [Motrin] 800 mg PO Q8HR PRN #20 tablet 02/03/19 Unknown Rx predniSONE [Deltasone] 20 mg PO DAILY #5 tablet 02/03/19 Unknown Rx Butalb/Acetamin/Caff 50-325-40 1 tab PO Q8HR PRN #10 tablet 03/08/19 Unknown Rx [Fioricet 50-325-40] Amoxicillin [Amoxicillin TAB] 875 mg PO BID #20 tablet 05/04/19 Unknown Rx Ibuprofen [Motrin 600 MG tab] 600 mg PO Q8H PRN #30 tablet 05/04/19 Unknown Rx Allergies Allergy/AdvReac Type Severity Reaction Status Date / Time tramadol Allergy Itching Verified 07/04/17 07:11 ED Dental HPI - General Chief complaint: Dental/Oral Stated complaint: TOOTHACHE EYE AND HEADACHE Time Seen by Provider: 05/04/19 08:08 Source: patient Mode of arrival: Ambulatory Limitations: No Limitations - Related Data Previous Rx's Medication Instructions Recorded Last Taken Type Ibuprofen [Motrin] 800 mg PO Q8HR PRN #20 tablet 02/03/19 Unknown Rx predniSONE [Deltasone] 20 mg PO DAILY #5 tablet 02/03/19 Unknown Rx Butalb/Acetamin/Caff 50-325-40 1 tab PO Q8HR PRN #10 tablet 03/08/19 Unknown Rx [Fioricet 50-325-40] Amoxicillin [Amoxicillin TAB] 875 mg PO BID #20 tablet 05/04/19 Unknown Rx Ibuprofen [Motrin 600 MG tab] 600 mg PO Q8H PRN #30 tablet 05/04/19 Unknown Rx Allergies Allergy/AdvReac Type Severity Reaction Status Date / Time tramadol Allergy Itching Verified 07/04/17 07:11 ED Review of Systems ROS: Stated complaint: TOOTHACHE EYE AND HEADACHE Other details as noted in HPI Comment: All other systems reviewed and negative ENT: as per HPI ED Past Medical Hx - Past Medical History Previous Medical History?: Yes Hx Asthma: Yes - Surgical History Past Surgical History?: Yes Additional Surgical History: X 3. TUBAL LIGATION - Social History Smoking Status: Current Every Day Smoker Substance Use Type: None - Medications Home Medications: Home Medications Medication Instructions Recorded Confirmed Last Taken Type Ibuprofen [Motrin] 800 mg PO Q8HR PRN #20 tablet 02/03/19 03/08/19 Unknown Rx predniSONE [Deltasone] 20 mg PO DAILY #5 tablet 02/03/19 03/08/19 Unknown Rx Butalb/Acetamin/Caff 50-325-40 1 tab PO Q8HR PRN #10 tablet 03/08/19 Unknown Rx [Fioricet 50-325-40] Amoxicillin [Amoxicillin TAB] 875 mg PO BID #20 tablet 05/04/19 Unknown Rx Ibuprofen [Motrin 600 MG tab] 600 mg PO Q8H PRN #30 tablet 05/04/19 Unknown Rx ED Physical Exam - General Limitations: No Limitations General appearance: alert, in no apparent distress - Head Head exam: Present: atraumatic, normocephalic - Eye Eye exam: Present: normal appearance - ENT ENT exam: Present: mucous membranes moist, other (ttp tooth 11, deep fermin, no facial or neck edema, uvula midline, airway patent) - Neck Neck exam: Present: normal inspection - Respiratory Respiratory exam: Present: respiratory distress - Cardiovascular Cardiovascular Exam: Absent: systolic murmur, diastolic murmur, rubs, gallop - Extremities Exam Extremities exam: Present: normal inspection - Back Exam Back exam: Present: normal inspection - Neurological Exam Neurological exam: Present: alert, oriented X3 - Psychiatric Psychiatric exam: Present: normal affect, normal mood - Skin Skin exam: Present: warm, dry, intact, normal color. Absent: rash ED Course Vital Signs 05/04/19 07:24 Temperature 98.2 F Pulse Rate 85 Respiratory 18 Rate Blood Pressure 111/66 O2 Sat by Pulse 99 Oximetry ED Medical Decision Making - Medical Decision Making dental pain w/o complication given norco here, rx for motrin/amoxil needs dental f/u - Differential Diagnosis caries, abscess Critical care attestation.: If time is entered above; I have spent that time in minutes in the direct care of this critically ill patient, excluding procedure time. ED Disposition Clinical Impression: Dentalgia Disposition: - TO HOME OR SELFCARE Is pt being admited?: No Condition: Good Instructions: Toothache (ED) Additional Instructions: Please schedule a follow up appointment with the dentist of your choice this week. Prescriptions: Amoxicillin [Amoxicillin TAB] 875 mg PO BID #20 tablet Ibuprofen [Motrin 600 MG tab] 600 mg PO Q8H PRN #30 tablet PRN Reason: Pain Referrals: PRIMARY CARE, [Primary Care Provider] - 3-5 Days Time of Disposition: 08:19
== END 2019-05-04 08:28 | disposition home or self-care (01) ==
LOC: ED 07:12
DX: K08.89 Other specified disorders of teeth and supporting structures (principal); J45.909 Unspecified asthma, uncomplicated; F17.200 Nicotine dependence, unspecified, uncomplicated; Z98.51 Tubal ligation status; Z88.5 Allergy status to narcotic agent; Z79.899 Other long term (current) drug therapy
CPT/HCPCS: 99282

== ENCOUNTER 2019-05-20 11:24 | Emergency (ER) | payer OTHER ==
--- NOTE | 2019-05-20 11:29 | Emergency Department Report ---
Blank Doc - Documentation Documentation: 33-year-old female that presents with right foot and tib-fib pain. This initial assessment/diagnostic orders/clinical plan/treatment(s) is/are subject to change based on patient's health status, clinical progression and re- assessment by fellow clinical providers in the ED. Further treatment and workup at subsequent clinical providers discretion. Patient/guardians urged not to elope from the ED as their condition may be serious if not clinically assessed and managed. Initial orders include: 1- Patient sent to [facility] for further evaluation and treatment 2- xrays
[2019-05-20] MEDS ORDERED: TORADOL IM ONE (12:33)
[2019-05-20] MEDS ORDERED: FLEXERIL PO ONE (12:33)
--- NOTE | 2019-05-20 12:38 | Emergency Department Report ---
ED Extremity Problem HPI - General Chief complaint: Extremity Injury, Lower Stated complaint: RT FOOT SEVERE PAIN/SHARP PAIN Time Seen by Provider: 05/20/19 11:28 Source: patient Mode of arrival: Ambulatory Limitations: No Limitations - History of Present Illness Initial comments: Patient is a 33-year-old female who presents the emergency room with complaints of right foot and right anterior gonzales pain that began a week ago. she states a week ago she jumped down from a ladder. She denies any fall. Has been ambulatory with some discomfort. Denies any numbness or weakness. Denies any previous injury. Patient states she has past medical history of asthma. She has allergy to tramadol. - Related Data Previous Rx's Medication Instructions Recorded Last Taken Type Ibuprofen [Motrin] 800 mg PO Q8HR PRN #20 tablet 02/03/19 Unknown Rx predniSONE [Deltasone] 20 mg PO DAILY #5 tablet 02/03/19 Unknown Rx Butalb/Acetamin/Caff 50-325-40 1 tab PO Q8HR PRN #10 tablet 03/08/19 Unknown Rx [Fioricet 50-325-40] Amoxicillin [Amoxicillin TAB] 875 mg PO BID #20 tablet 05/04/19 Unknown Rx Ibuprofen [Motrin 600 MG tab] 600 mg PO Q8H PRN #30 tablet 05/04/19 Unknown Rx Cyclobenzaprine [Flexeril] 10 mg PO QHS PRN #7 tablet 05/20/19 Unknown Rx Naproxen [Naprosyn TAB] 500 mg PO BID PRN #14 tablet 05/20/19 Unknown Rx Allergies Allergy/AdvReac Type Severity Reaction Status Date / Time tramadol Allergy Itching Verified 07/04/17 07:11 ED Review of Systems ROS: Stated complaint: RT FOOT SEVERE PAIN/SHARP PAIN Other details as noted in HPI Comment: All other systems reviewed and negative ED Past Medical Hx - Past Medical History Hx Asthma: Yes - Surgical History Additional Surgical History: X 3. TUBAL LIGATION - Social History Smoking Status: Never Smoker Substance Use Type: None - Medications Home Medications: Home Medications Medication Instructions Recorded Confirmed Last Taken Type Ibuprofen [Motrin] 800 mg PO Q8HR PRN #20 tablet 02/03/19 03/08/19 Unknown Rx predniSONE [Deltasone] 20 mg PO DAILY #5 tablet 02/03/19 03/08/19 Unknown Rx Butalb/Acetamin/Caff 50-325-40 1 tab PO Q8HR PRN #10 tablet 03/08/19 Unknown Rx [Fioricet 50-325-40] Amoxicillin [Amoxicillin TAB] 875 mg PO BID #20 tablet 05/04/19 Unknown Rx Ibuprofen [Motrin 600 MG tab] 600 mg PO Q8H PRN #30 tablet 05/04/19 Unknown Rx Cyclobenzaprine [Flexeril] 10 mg PO QHS PRN #7 tablet 05/20/19 Unknown Rx Naproxen [Naprosyn TAB] 500 mg PO BID PRN #14 tablet 05/20/19 Unknown Rx ED Physical Exam - General Limitations: No Limitations General appearance: alert, in no apparent distress - Head Head exam: Present: atraumatic, normocephalic - Eye Eye exam: Present: normal appearance - ENT ENT exam: Present: mucous membranes moist - Extremities Exam Extremities exam: Present: other (TTP over the right anterior tibia, no edema, no ecchymosis, TTP over the right heel, no edema no ecchymosis, FROM of the right ankle and foot, 2+ distal pulses, sensation intact, no calf tenderness, no RLE edema, amaya test is negative, no disruption of the achilles tendon) - Neurological Exam Neurological exam: Present: alert, oriented X3 - Psychiatric Psychiatric exam: Present: normal affect, normal mood - Skin Skin exam: Present: warm, dry, intact ED Course Vital Signs 05/20/19 05/20/19 11:28 13:06 Temperature 98.4 F Pulse Rate 77 70 Respiratory 19 16 Rate Blood Pressure 114/70 110/71 [Left] O2 Sat by Pulse 100 100 Oximetry ED Medical Decision Making - Radiology Data Radiology results: report reviewed Right tibia and fibula, 2 views INDICATION: pain. COMPARISON: None. IMPRESSION: No acute osseous or soft tissue abnormality. No significant DJD. Signer Name: Adolfo Fuller Jr, MD Signed: 05/20/2019 12:33 PM Workstation Name: [id number] Transcribed By: TTR Dictated By: ADOLFO FULLER JR, MD Electronically Authenticated By: ADOLFO FULLER JR, MD Signed Date/Time: 05/20/19 1233 DD/ 1233 TD/TT: Right foot-3 views INDICATION: pain. Acute generalized right foot pain COMPARISON: None. IMPRESSION: No acute osseous or soft tissue abnormality. No significant DJD. Signer Name: Stephan Nguyen MD Signed: 05/20/2019 12:39 PM Workstation Name: [id number] Transcribed By: EFRAÍN Dictated By: Stephan Nguyen MD Electronically Authenticated By: Stephan Nguyen MD Signed Date/Time: 05/20/19 6499 - Medical Decision Making Patient is a 33-year-old female who presents the emergency room with complaints of right foot and right anterior gonzales pain that began a week ago. she states a week ago she jumped down from a ladder. She denies any fall. Has been ambulatory with some discomfort. Denies any numbness or weakness. Denies any previous injury. Patient states she has past medical history of asthma. She has allergy to tramadol. vitals are normal. on exam: TTP over the right anterior tibia, no edema, no ecchymosis, TTP over the right heel, no edema no ecchymosis, FROM of the right ankle and foot, 2+ distal pulses, sensation intact, no calf tenderness, no RLE edema, amaya test is negative, no disruption of the achilles tendon. XR of the right foot and tib/fib with no acute process. pts discomfort treated while in the ED. pt given prescription for flexeril and naproxen for strain/sprain. advised to please take medication as prescribed as needed. May use rest, elevation of the leg, ice for 15 minutes at a time. Follow up with the primary care doctor in the next 2-3 days. Return to the emergency room for any new or worsening symptoms. - Differential Diagnosis strain, sprain, fx, dislocation, tendon/ligament injury Critical care attestation.: If time is entered above; I have spent that time in minutes in the direct care of this critically ill patient, excluding procedure time. ED Disposition Clinical Impression: Right foot pain, Pain of right tibia Disposition: TO HOME OR SELFCARE Is pt being admited?: No Does the pt Need Aspirin: No Condition: Stable Instructions: Arthralgia (ED) Additional Instructions: Please take medication as prescribed as needed. May use rest, elevation of the leg, ice for 15 minutes at a time. Follow up with the primary care doctor in the next 2-3 days. Return to the emergency room for any new or worsening symptoms. Prescriptions: Cyclobenzaprine [Flexeril] 10 mg PO QHS PRN #7 tablet PRN Reason: Muscle Spasm Naproxen [Naprosyn TAB] 500 mg PO BID PRN #14 tablet PRN Reason: pain Referrals: [facility] [Provider Group] - 2-3 Days [facility] [Outside] - 2-3 Days [facility] [Outside] - 2-3 Days Forms: Work/School Release Form(ED) Time of Disposition: 12:56 Print Language: MALAWIAN
--- NOTE | 2019-05-20 12:43 | XRay Report ---
Right foot-3 views INDICATION: pain. Acute generalized right foot pain COMPARISON: None. IMPRESSION: No acute osseous or soft tissue abnormality. No significant DJD. Signer Name: Stephan Nguyen MD Signed: 05/20/2019 12:39 PM Workstation Name: [id number]
[2019-05-20 13:08] VITALS: BP 110/71
== END 2019-05-20 13:06 | disposition home or self-care (01) ==
LOC: ED 11:24
DX: M79.671 Pain in right foot (principal); J45.909 Unspecified asthma, uncomplicated; Z98.51 Tubal ligation status; Z88.6 Allergy status to analgesic agent; Z79.899 Other long term (current) drug therapy
CPT/HCPCS: 73590; 73630; 96372; 99283; J1885

== ENCOUNTER 2019-09-27 15:05 | Emergency (ER) | payer SELFPAY ==
[2019-09-27 18:33] VITALS: BP 130/64
[2019-09-27] MEDS ORDERED: GABAPENTIN 300 MG CAP PO ONE (19:41)
--- NOTE | 2019-09-27 19:48 | Emergency Department Report ---
ED Female HPI - General Chief complaint: Abdominal Pain Stated complaint: ABD PAIN EXTREME Time Seen by Provider: 09/27/19 19:19 Source: patient Mode of arrival: Ambulatory Limitations: No Limitations - History of Present Illness Initial comments: 33 year old female with pmhx of asthma presents to ED c/o pelvic pain and abnormal vaginal bleeding. Patient states her symptoms started about 3 days ago. She states vaginal bleeding is mainly spotting. Her last MC was August 28 and her MC for this month is not schedule to started until october 02. Patient states its not unusual for her to have cramping during her MC but she states cramping in past 3 days have been worse. She reports associated clear/white vaginal discharge. She states she does have a new sexual partner. Denies any known STD exposure. She also reports vomiting x but she has been nauseous. She reports no UTI symptoms. She reports no fever or chills or any other symptoms at this time. MD Complaint: vaginal bleeding, vaginal discharge, pelvic pain -: Sudden, days(s) (3) - Related Data Previous Rx's Medication Instructions Recorded Last Taken Type Ibuprofen [Motrin] 800 mg PO Q8HR PRN #20 tablet 02/03/19 Unknown Rx predniSONE [Deltasone] 20 mg PO DAILY #5 tablet 02/03/19 Unknown Rx Butalb/Acetamin/Caff 50-325-40 1 tab PO Q8HR PRN #10 tablet 03/08/19 Unknown Rx [Fioricet 50-325-40] Amoxicillin [Amoxicillin TAB] 875 mg PO BID #20 tablet 05/04/19 Unknown Rx Ibuprofen [Motrin 600 MG tab] 600 mg PO Q8H PRN #30 tablet 05/04/19 Unknown Rx Cyclobenzaprine [Flexeril] 10 mg PO QHS PRN #7 tablet 05/20/19 Unknown Rx Naproxen [Naprosyn TAB] 500 mg PO BID PRN #14 tablet 05/20/19 Unknown Rx Ketorolac [Toradol] 10 mg PO Q6H PRN #20 tablet 09/27/19 Unknown Rx Promethazine [Phenergan] 25 mg PO Q8HR PRN #12 tab 09/27/19 Unknown Rx Allergies Allergy/AdvReac Type Severity Reaction Status Date / Time acetaminophen Allergy Rash Verified 09/27/19 15:11 [From Tylenol-Codeine #3] codeine Allergy Rash Verified 09/27/19 15:11 [From Tylenol-Codeine #3] naproxen Allergy Unknown Verified 09/27/19 15:11 tramadol Allergy Itching Verified 07/04/17 07:11 ED Review of Systems ROS: Stated complaint: ABD PAIN EXTREME Other details as noted in HPI Comment: All other systems reviewed and negative Constitutional: denies: chills, fever Gastrointestinal: abdominal pain, nausea, vomiting Genitourinary: discharge, abnormal menses. denies: urgency, dysuria, frequency, hematuria, dyspareunia Skin: denies: as per HPI Neurological: denies: weakness ED Past Medical Hx - Past Medical History Previous Medical History?: Yes Hx Asthma: Yes - Surgical History Past Surgical History?: Yes Additional Surgical History: X 3. TUBAL LIGATION - Social History Smoking Status: Current Every Day Smoker Substance Use Type: None - Medications Home Medications: Home Medications Medication Instructions Recorded Confirmed Last Taken Type Ibuprofen [Motrin] 800 mg PO Q8HR PRN #20 tablet 02/03/19 03/08/19 Unknown Rx predniSONE [Deltasone] 20 mg PO DAILY #5 tablet 02/03/19 03/08/19 Unknown Rx Butalb/Acetamin/Caff 50-325-40 1 tab PO Q8HR PRN #10 tablet 03/08/19 Unknown Rx [Fioricet 50-325-40] Amoxicillin [Amoxicillin TAB] 875 mg PO BID #20 tablet 05/04/19 Unknown Rx Ibuprofen [Motrin 600 MG tab] 600 mg PO Q8H PRN #30 tablet 05/04/19 Unknown Rx Cyclobenzaprine [Flexeril] 10 mg PO QHS PRN #7 tablet 05/20/19 Unknown Rx Naproxen [Naprosyn TAB] 500 mg PO BID PRN #14 tablet 05/20/19 Unknown Rx Ketorolac [Toradol] 10 mg PO Q6H PRN #20 tablet 09/27/19 Unknown Rx Promethazine [Phenergan] 25 mg PO Q8HR PRN #12 tab 09/27/19 Unknown Rx ED Physical Exam - General Limitations: No Limitations General appearance: alert, in distress (mild, patient appears to be in pain) - Head Head exam: Present: atraumatic, normocephalic, normal inspection - Eye Eye exam: Present: normal appearance, PERRL, EOMI Pupils: Present: normal accommodation - ENT ENT exam: Present: normal exam - GI/Abdominal GI/Abdominal exam: Present: soft. Absent: tenderness - External exam: Present: normal external exam Speculum exam: Present: vaginal bleeding (small amt). Absent: vaginal discharge, cervical discharge, foreign body Bi-manual exam: Present: adnexal tenderness (severe bilaterally), uterine tenderness. Absent: cervical motion tendernes, adnexal mass - Neurological Exam Neurological exam: Present: alert, oriented X3, CN II-XII intact, normal gait - Psychiatric Psychiatric exam: Present: normal affect, normal mood - Skin Skin exam: Present: intact ED Course Vital Signs 09/27/19 18:31 Temperature 97.8 F Pulse Rate 76 Respiratory 18 Rate Blood Pressure 130/64 O2 Sat by Pulse 100 Oximetry ED Medical Decision Making - Radiology Data Radiology results: report reviewed Patient: DEBRA BLAIR MR#: [id number] : 1985 Acct:[id number] Age/Sex: 33 / F ADM Date: 09/27/19 Loc: ED Attending Dr: Ordering Physician: ELEAZAR HOPKINS Date of Service: 09/27/19 Procedure(s): US pelvic complete Accession Number(s): [id number] cc: ELEAZAR HOPKINS ULTRASOUND PELVIS INDICATION: severe pelvic pain. TECHNIQUE: Transabdominal. Duplex Color Doppler used: Yes. COMPARISON: None available FINDINGS: Uterus: Present. Size: 7.6 x 4.4 x 5.3 cm. Endometrial complex: Normal measuring 0.3 cm. Mass lesions: None. Additional findings: None. Right Ovary: Not visualized. Left Ovary: Not visualized. Urinary Bladder: Normal. Free Fluid: None. Additional Findings: None. IMPRESSION: 1. No acute sonographic abnormality of the pelvis. Signer Name: Jason Kimble MD Signed: 09/27/2019 9:40 PM Workstation Name: [id number] Transcribed By: KALINA Dictated By: Jason Kimble MD Electronically Authenticated By: Jason Kimble MD Signed Date/Time: 09/27/192139 DD/ 38 TD/TT: - Medical Decision Making 33 year old female presents to ED c/o pelvic pain and abnomal vag bleeding. Onset 3 days ago. She states she is not scheduled to start her MC until the . Her last MC was august 28. She vomitted x 1 and has had some nausea. Patient is not ill appearing or toxic. Her VS stable and she is afebrile. She actually has soft non tender abdomen; she has adnexal ttp but no mass or CMT. only small amt of bleeding noted on pelvic exam, no hemorrhaging; no vomiting during stay; UA unremarkable, hcg negative; wet prep negative, GC pending (pt states she is not worried about that), US negative for anything acute. Bleeding and pain could be related to early onset of her MC. I do not see any indication for further testing, consultation or admission at this time. Recommend patient follow up with her OBGYN for additional evaluation. Patient condition is stable and she is appropriate for discharge. Critical care attestation.: If time is entered above; I have spent that time in minutes in the direct care of this critically ill patient, excluding procedure time. ED Disposition Clinical Impression: Vaginal bleeding, Pelvic pain, Dysmenorrhea Disposition: TO HOME OR SELFCARE Is pt being admited?: No Does the pt Need Aspirin: No Condition: Stable Instructions: Dysmenorrhea (ED), Abdominal Pain (ED) Prescriptions: Promethazine [Phenergan] 25 mg PO Q8HR PRN #12 tab PRN Reason: Nausea Ketorolac [Toradol] 10 mg PO Q6H PRN #20 tablet PRN Reason: Pain Referrals: PRIMARY CARE,MD [Primary Care Provider] - 3-5 Days Forms: Accompanied Note, Work/School Release Form(ED) Time of Disposition: 22:23
[2019-09-27 20:03] LABS: Bilirubin,Urine NEG (Negative); Blood,Urine MOD (Negative); Color,Urine Yellow (Yellow); Mucus,Urine FEW /HPF; Protein,Urine <15 mg/dL mg/dL (Negative); RBC,Urine < 1.0 /HPF (0.0-6.0); Urobilinogen,Urine < 2.0 mg/dL (<2.0); WBC,Urine < 1.0 /HPF (0.0-6.0)
[2019-09-27 20:08] LABS: HCG Qualitative,Urine Negative (Negative)
--- NOTE | 2019-09-27 21:45 | Ultrasound Report ---
ULTRASOUND PELVIS INDICATION: severe pelvic pain. TECHNIQUE: Transabdominal. Duplex Color Doppler used: Yes. COMPARISON: None available FINDINGS: Uterus: Present. Size: 7.6 x 4.4 x 5.3 cm. Endometrial complex: Normal measuring 0.3 cm. Mass lesions: None. Additional findings: None. Right Ovary: Not visualized. Left Ovary: Not visualized. Urinary Bladder: Normal. Free Fluid: None. Additional Findings: None. IMPRESSION: 1. No acute sonographic abnormality of the pelvis. Signer Name: Jason Kimble MD Signed: 09/27/2019 9:40 PM Workstation Name: [id number]
[2019-09-27] MEDS ORDERED: MORPHINE 2 MG/1 ML INJ IV ONE (22:20)
[2019-09-27] MEDS ORDERED: MORPHINE 2 MG/1 ML INJ IM ONE (22:40)
== END 2019-09-27 22:45 | disposition home or self-care (01) ==
LOC: ED 15:05
DX: N93.9 Abnormal uterine and vaginal bleeding, unspecified (principal); R10.2 Pelvic and perineal pain; N94.6 Dysmenorrhea, unspecified; J45.909 Unspecified asthma, uncomplicated; F17.200 Nicotine dependence, unspecified, uncomplicated; Z98.51 Tubal ligation status; Z98.890 Other specified postprocedural states; Z79.1 Long term (current) use of non-steroidal anti-inflammatories (NSAID); Z79.2 Long term (current) use of antibiotics; Z79.899 Other long term (current) drug therapy; Z88.4 Allergy status to anesthetic agent; Z88.8 Allergy status to other drugs, medicaments and biological substances
CPT/HCPCS: 76856; 81001; 81025; 87210; 87591; 96372; 99283; J2270

== ENCOUNTER 2019-10-24 06:12 | Emergency (ER) | payer SELFPAY ==
[2019-10-24] MEDS ORDERED: HYDROcodone/ACETAMINOPHEN 5-325 MG TAB PO ONE (09:20)
[2019-10-24] MEDS ORDERED: IBUPROFEN 800 MG TAB PO ONE (09:20)
--- NOTE | 2019-10-24 09:26 | Emergency Department Report ---
HPI - General Chief Complaint: Dental/Oral Time Seen by Provider: 10/24/19 09:10 - HPI HPI: Room 37 The patient is a 34-year-old female present with a chief complaint of dental pain and facial swelling. The patient states she broke her left canine 2 weeks ago. The patient states she saw a dentist 2 days ago and was given a prescription for ibuprofen and started on amoxicillin 875 mg 3 times daily. The patient states she has been taking the medication as prescribed but yesterday she noticed swelling under her left eye. The patient states today she noticed swelling of the left face. Patient admits to fever 101 F at home. Patient currently gives her pain score of 10/10. The patient is not driving as she states her fianc brought her to the emergency department ED Past Medical Hx - Past Medical History Previous Medical History?: Yes Hx Asthma: Yes Additional medical history: Dental abscess - Surgical History Past Surgical History?: Yes Additional Surgical History: X 3. TUBAL LIGATION - Family History Family history: no significant - Social History Smoking Status: Current Every Day Smoker (1/4 pack/day) Substance Use Type: None (Denies illicit drug use) - Medications Home Medications: Home Medications Medication Instructions Recorded Confirmed Last Taken Type Ibuprofen [Motrin] 800 mg PO Q8HR PRN #20 tablet 02/03/19 03/08/19 Unknown Rx predniSONE [Deltasone] 20 mg PO DAILY #5 tablet 02/03/19 03/08/19 Unknown Rx Butalb/Acetamin/Caff 50-325-40 1 tab PO Q8HR PRN #10 tablet 03/08/19 Unknown Rx [Fioricet 50-325-40] Amoxicillin [Amoxicillin TAB] 875 mg PO BID #20 tablet 05/04/19 Unknown Rx Ibuprofen [Motrin 600 MG tab] 600 mg PO Q8H PRN #30 tablet 05/04/19 Unknown Rx Cyclobenzaprine [Flexeril] 10 mg PO QHS PRN #7 tablet 05/20/19 Unknown Rx Naproxen [Naprosyn TAB] 500 mg PO BID PRN #14 tablet 05/20/19 Unknown Rx Ketorolac [Toradol] 10 mg PO Q6H PRN #20 tablet 09/27/19 Unknown Rx Promethazine [Phenergan] 25 mg PO Q8HR PRN #12 tab 09/27/19 Unknown Rx Clindamycin [Clindamycin CAP] 300 mg PO Q6H #40 capsule 10/24/19 Unknown Rx HYDROcodone/APAP 5-325 [[place] 1 - 2 each PO Q6HR PRN #14 tablet 10/24/19 Unknown Rx 5/325] Ibuprofen [Motrin 800 MG tab] 800 mg PO Q8HR PRN #20 tablet 10/24/19 Unknown Rx ED Review of Systems ROS: Stated complaint: TOOTH PAIN/FACIAL SWELLING Other details as noted in HPI Constitutional: fever (101 F) ENT: dental pain Physical Exam - Physical Exam Vital Signs: Vital Signs 10/24/19 06:59 Temperature 99 F Pulse Rate 72 Respiratory 18 Rate Blood Pressure 117/80 O2 Sat by Pulse 98 Oximetry Physical Exam: GENERAL: The patient is well-developed well-nourished female lying on stretcher appearing to be in moderate discomfort. [] HEENT: Normocephalic. Atraumatic. Extraocular motions are intact. Patient has moist mucous membranes. There is swelling to the left face but no fluctuance palpated NECK: Supple. Trachea midline CHEST/LUNGS: There is no respiratory distress noted. SKIN: There is no rash. There is swelling of the left face. There is no diaphoresis. NEURO: The patient is awake, alert, and oriented. The patient is cooperative. The patient has normal speech MUSCULOSKELETAL: There is no evidence of acute injury. ED Course Vital Signs 10/24/19 06:59 Temperature 99 F Pulse Rate 72 Respiratory 18 Rate Blood Pressure 117/80 O2 Sat by Pulse 98 Oximetry ED Medical Decision Making - Lab Data Result diagrams: 10/24/19 10:00 10/24/19 10:00 Laboratory Tests 10/24/19 10/24/19 10/24/19 10:00 10:00 10:00 WBC 9.3 RBC 4.06 Hgb 10.7 Hct 33.2 MCV 82 MCH 26 L MCHC 32 RDW 16.3 H Plt Count 255 Lymph % (Auto) 14.2 [place] % (Auto) 7.1 Eos % (Auto) 1.4 Baso % (Auto) 0.2 Lymph # 1.3 [place] # 0.7 Eos # 0.1 Baso # 0.0 Seg Neutrophils % 77.1 H Seg Neutrophils # 7.2 Sodium 137 Potassium 4.1 Chloride 103.3 Carbon Dioxide 22 Anion Gap 16 BUN 10 Creatinine 0.6 L Estimated GFR > 60 BUN/Creatinine Ratio 17 Glucose 86 Calcium 8.7 HCG, Qual Negative - Radiology Data Radiology results: report reviewed (CT face), image reviewed (CT face) Findings [facility] [address] [place] [address] Cat Scan Report Signed Patient: DEBRA BLAIR MR#: [id number] : 1985 Acct:[id number] Age/Sex: 34 / F ADM Date: 10/24/19 Loc: ED Attending Dr: Ordering Physician: SELENA RAM MD Date of Service: 10/24/19 Procedure(s): CT facial bones w con Accession Number(s): [id number] cc: SELENA RAM MD CT MAXILLOFACIAL WITH CONTRAST INDICATION: Dental pain, left facial swelling. TECHNIQUE: CT facial bones with contrast. The patient received 100 mL of IV Omnipaque [address] scans at this location are performed using CT dose reduction for ALARA by means of automated exposure control. COMPARISON: None available. FINDINGS: There is a small subperiosteal abscess along the buccal surface of the anterior left maxilla measuring 1.1 cm in greatest dimension. T his is adjacent to a carious left maxillary canine with periodontal disease and mild cortical breakthrough along the buccal surface. No additional fluid collections are identified. Paranasal sinuses are clear. There are no aggressive appearing bone lesions. The visualized portions of the brain appear normal for age. IMPRESSION: 1. Small subperiosteal abscess along the buccal surface of the left anterior maxilla adjacent to a carious left maxillary canine tooth with periodontal disease.. Signer Name: John Paul Adames MD Signed: 10/24/2019 12:11 PM Workstation Name: [id number] Transcribed By: JENISE Dictated By: John Paul Adames MD Electronically Authenticated By: John Paul Adames MD Signed Date/Time: 10/24/19 1211 DD/ 1209 TD/TT: - Differential Diagnosis Dental abscess, facial cellulitis, facial abscess Critical care attestation.: If time is entered above; I have spent that time in minutes in the direct care of this critically ill patient, excluding procedure time. ED Disposition Clinical Impression: Dental abscess, Dental caries Disposition: DC-01 TO HOME OR SELFCARE Is pt being admited?: No Does the pt Need Aspirin: No Condition: Stable Instructions: Dental Abscess (ED) Additional Instructions: Return to the emergency department should you develop worsening symptoms, inability to tolerate food or liquids, high fever or any other concerns Prescriptions: Clindamycin [Clindamycin CAP] 300 mg PO Q6H #40 capsule Ibuprofen [Motrin 800 MG tab] 800 mg PO Q8HR PRN #20 tablet PRN Reason: Pain, Moderate (4-6) HYDROcodone/APAP 5-325 [[place] 5/325] 1 - 2 each PO Q6HR PRN #14 tablet PRN Reason: Pain Referrals: [facility] [Outside] - 2-3 Days Time of Disposition: 12:29
[2019-10-24 11:14] LABS: BUN/Creatinine Ratio 17; Blood Urea Nitrogen 10 mg/dL (7-17); Calcium 8.7 mg/dL (8.4-10.2); Hemolysis Index 1
[2019-10-24 11:18] LABS: Basophils % (Auto) 0.2 % (0.0-1.8); Eosinophils # (Auto) 0.1 K/mm3 (0.0-0.4); Eosinophils % (Auto) 1.4 % (0.0-4.3); Hematocrit 33.2 % (30.3-42.9); Hemoglobin 10.7 gm/dl (10.1-14.3); Lymphocytes # (Auto) 1.3 K/mm3 (1.2-5.4); Lymphocytes % (Auto) 14.2 % (13.4-35.0); Mean Corpuscular HGB Conc 32 % (30-34); Mean Corpuscular Volume 82 fl (79-97); Monocytes # (Auto) 0.7 K/mm3 (0.0-0.8); Monocytes % (Auto) 7.1 % (0.0-7.3); Platelet Count 255 K/mm3 (140-440); Red Blood Count 4.06 M/mm3 (3.65-5.03); Red Cell Distribution Width 16.3 % (13.2-15.2)
--- NOTE | 2019-10-24 12:16 | Cat Scan Report ---
CT MAXILLOFACIAL WITH CONTRAST INDICATION: Dental pain, left facial swelling. TECHNIQUE: CT facial bones with contrast. The patient received 100 mL of IV Omnipaque [address] scans at this l ocation are performed using CT dose reduction for ALARA by means of automated exposure control. COMPARISON: None available. FINDINGS: There is a small subperiosteal abscess along the buccal surface of the anterior left maxilla measurin g 1.1 cm in greatest dimension. This is adjacent to a carious left maxillary canine with periodontal disease and mild cortical breakthrough along the buccal surface. No additional fluid collections are identified. Paranasal sinuses are clear. There are no aggressive appearing bone lesions. The visualized portions of the brain appear normal for age. IMPRESSION: 1. Small subperiosteal abscess along the buccal surface of the left anterior maxilla adjacent to a carious left maxillary canine tooth with periodontal disease.. Signer Name: John Paul Adames MD Signed: 10/24/2019 12:11 PM Workstation Name: [id number]
[2019-10-24 12:45] VITALS: BP 103/70
== END 2019-10-24 12:47 | disposition home or self-care (01) ==
LOC: ED 06:12
DX: K04.7 Periapical abscess without sinus (principal); K02.9 Dental caries, unspecified; J45.909 Unspecified asthma, uncomplicated; F17.200 Nicotine dependence, unspecified, uncomplicated
CPT/HCPCS: 36415; 70487; 80048; 84703; 85025; 87040; 99284; Q9967